=== PATIENT | female | born 1955 | race Caucasian/White ===

== ENCOUNTER 2019-12-12 11:08 | Outpatient (CLI) | payer MEDICARE, MEDICAID, SELFPAY ==
--- NOTE | ~2019-12-12 | US_ITS ---
EXAMINATION: US pelvic complete DATE: 12/12/2019 14:31 INDICATION: Vaginal spotting Comparison:No prior studies for comparison. TECHNIQUE: Multiple transabdominal sonographic images of the pelvis performed. Study limited due to p atient immobility. Transvaginal examination could not be tolerated. FINDINGS: The uterus measures 5.1 x 2.9 x 4 cm. The endometrial complex measures 2 mm. The ovaries are not visualized. There is no free fluid in the pelvis. There are no abnormal masses seen on either side. IMPRESSION: 1. Unremarkable pelvic ultrasound. Reviewed, dictated and finalized at location A.
== END 2019-12-12 11:09 | disposition home or self-care (01) ==
LOC: ANHIMG 11:25
PROVIDERS: PCP Family Medicine; Visit Provider Family Medicine
DX: N93.9 Abnormal uterine and vaginal bleeding, unspecified (principal)
CPT/HCPCS: 76856

== ENCOUNTER 2020-11-20 13:23 | Emergency (ER) | payer MEDICARE, SELFPAY ==
[2020-11-20] VITALS (29 sets, daily range): BP systolic 104–155; BP diastolic 69–88; PULSE 72–92; RESP 8–20; TEMP 36.7; O2SAT 95–100
--- NOTE | ~2020-11-20 | XR_ITS ---
XR knee LT min 4V DATE: 11/20/2020 14:48 INDICATION: Left knee pain TECHNIQUE: 4 views COMPARISON: 02/22/2018 left knee FINDINGS: There is diffuse osteopenia. Plate and screws are noted from the tibial plateaus through the mid tibial shaft, providing internal fixation for prior healed comminuted intra-articular fracture of the proximal tibia including tibial plateaus extending into the proximal tibial shaft. There is old healed fracture deformity of the fibular neck as well. No recent fracture or dislocation, periosteal reaction or bone destruction is evident. No joint effus ion is evident. There is moderate loss of height of medial compartment joint space. No radiopaque intra-articular loo se body or chondrocalcinosis. IMPRESSION: Old fracture deformities of the tibia and fibula Diffuse osteopenia No recent fracture or dislocation, joint effusion or bone destruction Reviewed, dictated and finalized at location B. ECT ACCOUNTANT
--- NOTE | ~2020-11-20 | XR_ITS ---
XR chest 1V portable DATE: 11/20/2020 14:48 INDICATION: Left rib pain TECHNIQUE: Portable AP chest on November 20, 2020 at 1430 hours COMPARISON: None FINDINGS: Prominent old fracture deformity of the left scapula. Apparent surgical resection of the la teral shaft of the left clavicle. There are old healed left rib fracture deformities. Diffuse osteopenia. Status post anterior lower cervical spine surgical fusion. Thoracolumbar scoliosis. Normal heart size. No hilar or mediastinal enlargement. There is mild discoid atelectasis or scarring in the left lower lobe in the retrocardiac area. Minima l discoid atelectasis or scarring in the right lower lung. The lungs otherwise appear clear. No pleural effusion or pulmonary vascular congestion or pneumothorax. IMPRESSION: Discoid atelectasis or scarring in the left lower lobe and right lower lung; otherwise no active cardiopulmonary disease Old fracture deformities of left scapula and ribs and probable resection of the lateral aspect of the left clavicle Diffuse osteopenia Status post anterior cervical spine fusion Thoracolumbar scoliosis Reviewed, dictated and finalized at location B. TY OR CITY AUDITOR IMPRESSION: Discoid atelectasis or scarring in the left lower lobe and right lo wer lung; otherwise no active cardiopulmonary disease Old fracture deformities of left scapula and ribs and probable resection of the lateral aspect of the left clavicle Diffuse osteopenia Status post anterior cervical spine fusion Thoracolumbar scoliosis
--- NOTE | ~2020-11-20 | US_ITS ---
EXAMINATION: US venous doppler [facility] EXAM DATE: 11/20/2020 15:06 INDICATION: Left leg pain and swelling. TECHNIQUE: Multiple grayscale, color flow and Doppler images of the left lower extremity deep venous system were obtained and reviewed. There is no prior study for comparison. FINDINGS: The left common femoral, femoral and profunda veins demonstrate normal color flow, respirat ory variation, augmentation and compressibility. Compressibility, color flow confirmed within the le ft popliteal, posterior tibial, peroneal, and greater saphenous veins. IMPRESSION: 1. No left lower extremity deep venous thrombosis. Reviewed, dictated and finalized at location A. B SPECIALIST
--- NOTE | ~2020-11-20 | CT_ITS ---
EXAMINATION: CT abdomen pelvis w con EXAM DATE: 11/20/2020 17:36 INDICATION: Left-sided abdominal pain. TECHNIQUE: Spiral CT of the abdomen and pelvis was performed following intravenous injection of 100 m L Omnipaque 350. Axial, coronal and sagittal images were reviewed. The dose-length product (DLP) fo r this examination was 606.54 mGy-cm. The exposure was tailored according to patient size (auto mA e xposure control), and iterative reconstruction (ASIR) was used as additional dose reduction technique . There is no prior study for comparison. FINDINGS: The liver, spleen, adrenal glands and pancreas are unremarkable. There are cholecystectomy clips. There is bilateral hydronephrosis, moderate on the right and mild to moderate on the left, do wn to the ureterovesicular junctions bilaterally. No obstructing stones. There is evidence of old kimber ateral renal cortical scarring. The uterus is unremarkable. The bladder is unremarkable. There is no retroperitoneal or pelvic lymphadenopathy. There is mild scattered arteriosclerotic disease. The appendix is normal. The stomach and small bowel are unremarkable. There is expected amount of c olonic stool. No free intraperitoneal gas. The heart is normal in size. There are no pericardial or pleural effusions. There are bibasilar linear opacities, subsegmental atelectasis. There are no osteoblastic or osteolytic lesions identified. There is moderate thoracolumbar levoscoliosis. Pain pump device, catheter. IMPRESSION: 1. Bilateral hydronephrosis to the UVJs without obstructing etiology identified. Regions of renal co rtical scarring. Chronic vesicoureteral reflux could explain both these findings. 2. Bibasilar subsegmental atelectasis. Reviewed, dictated and finalized at location A. AL ROUTER OPERATOR IMPRESSION: 1. Bilateral hydronephrosis to the UVJs without obstructing etiology identifie d. Regions of renal cortical scarring. Chronic vesicoureteral reflux could expl ain both these findings. 2. Bibasilar subsegmental atelectasis.
--- NOTE | ~2020-11-20 | XR_ITS ---
XR ankle LT min 3V DATE: 11/20/2020 14:48 INDICATION: Pain. No recent injury. TECHNIQUE: 4 views COMPARISON: 02/22/2018 left ankle FINDINGS: Plate and screws are noted along the proximal to mid tibial shaft. Diffuse osteopenia, particularly from the distal tibia and fibula distally. Chronic deformity at distal tibial diametaphyseal fracture and distal fibular shaft fracture. There is a notch-like defect along the distal medial tibial metaphysis which is corticated and less promine nt than on 02/22/2018. No interval periosteal reaction or bone destruction is noted. No recent fracture or dislocation is detected. IMPRESSION: Chronic fracture deformities of the distal tibia and fibula Osteopenia, particularly at the distal tibia and fibula, ankle and foot Reviewed, dictated and finalized at location B. OM FURRIER
[2020-11-20 13:51] LABS: Add Urine Microscopic? YES; Appearance Urine Cloudy (Clear); Bacteria Urine Trace /hpf; Bilirubin Urine Negative (Negative); Blood Urine 1+ (Negative); Color Urine Yellow (Yellow); Glucose Urine UA Negative (Negative); Ketones Urine Negative (Negative); Leukocyte Esterase Ur 2+ LEU/UL (Negative); Mucus Urine Rare /lpf; Nitrate Urine Negative (Negative); Protein Urine 1+ mg/dL (Negative); RBC Urine 21-50 /hpf (0-2); Specific Grav Ur 1.011 (1.001-1.035); Squamous Epithelial Cell Urine Rare /hpf (Few); WBC Clumps Urine Present /HPF; WBC Urine >75 /hpf
[2020-11-20 14:07] LABS: Basophils Percent Auto 0.1 % (0.2-1.2); Eosinophils Absolute Auto 0.2 K/mm3 (0-0.3); Eosinophils Percent Auto 1.8 % (0-4.4); Hemoglobin 11.8 g/dL (12.0-15.0); Immature Granulocyte Absolute 0.02 K/mm3 (0.00-0.031); Immature Granulocyte Percent A 0.2 % (0-0.5); Lymphocytes Absolute Auto 2.14 K/mm3 (0.9-3.2); Lymphocytes Percent Auto 24.6 % (18.3-44.2); Mean Corpuscular HGB Conc 32.8 g/dl (32-36); Mean Corpuscular Hemoglobin 28.9 pg (26-34); Mean Corpuscular Volume 88.2 fl (80-100); Mean Platelet Volume 9.6 fl (7.4-10.4); Monocytes Absolute Auto 0.5 K/mm3 (0.1-0.6); Monocytes Percent Auto 5.2 % (2.6-8.5); Neutrophils Absolute Auto 5.9 K/mm3 (1.3-6.7); Neutrophils Percent Auto 68.1 % (45.5-73.1); Platelet Count Result 267 k/mm3 (150-375); Red Blood Count 4.08 M/mm3 (4.2-5.4); Red Cell Distribution Width 13.9 % (11.5-14.5); White Blood Count 8.7 K/mm3 (4.5-10.0)
[2020-11-20 14:20] LABS: Alanine Aminotransferase 14 U/L (4-35); Albumin Level 3.8 g/dL (3.5-5.1); Alkaline Phosphatase 161 U/L (38-126); Anion Gap 5 mmol/L (8-16); Aspartate Amino Transferase 25 U/L (14-36); Bilirubin,Total 0.4 mg/dL (0.2-1.3); Blood Urea Nitrogen 21 mg/dL (7-17); Calcium 9.3 mg/dL (8.4-10.2); Carbon Dioxide 31 mmol/L (22-30); Chloride 101 mmol/L (98-107); Estimated CRCL calculation 46 ml/min; Estimated Glomerular Filt Rate 56; Glucose 94 mg/dL (65-105); Lipase 142 U/L (23-300); Potassium 4.4 mmol/L (3.4-5.0); Sodium 137 mmol/L (137-145)
--- NOTE | 2020-11-20 14:22 | ECG_ITS ---
Measurements Intervals [place] Rate: 83 P: 22 WA: 159 QRS: 30 QRSD: 75 T: 49 QT: 352 QTc: 414 Interpretive Statements SINUS RHYTHM BASELINE ARTIFACT- I, II, III, AVR, AVL, AVF NORMAL ECG Electronically Signed On 11-20-2020 17:15:06 NUTRITION EDUCATOR by Yossi Navarro D.O.
--- NOTE | 2020-11-20 14:27 | PC.NURSE ---
Called lab to add on d dimer and pt inr ptt
[2020-11-20 14:38] LABS: INR 1.1; Partial Thromboplastin Time 33.7 SECONDS (22.3-36.8); Prothrombin Time 14.4 Seconds (11.1-14.7)
[2020-11-20 14:41] LABS: D Dimer 0.27 ug/mL (<0.48)
--- NOTE | 2020-11-20 15:29 | ED.ABDPAIN ---
HPI - Abdominal Pain General Chief Complaint: Abdominal Pain <Lavonne Mena MD - Last Filed: 11/20/20 17:14> Stated Complaint: abd pain <Lavonne Mena MD - Last Filed: 11/20/20 17:14> Time Seen by Provider: 11/20/20 13:53 <Lavonne Mena MD - Last Filed: 11/20/20 17:14> Source: patient <Lavonne Mena MD - Last Filed: 11/20/20 17:14> Mode of arrival: EMS <Lavonne Mena MD - Last Filed: 11/20/20 17:14> Limitations: no limitations <Lavonne Mena MD - Last Filed: 11/20/20 17:14> History of Present Illness HPI narrative: This patient is a 65 year old female with history of chronic pain syndrome with pain pump who presents for evaluation of left upper abdominal pain starting today. She reports she noticed that she is tender when anyone touches her left lower ribs. She denies any recent fall or injury. She denies fever, chills, shortness of breath or cough. She also reports left lower leg pain. She has history of surgeries to her legs due to a traumatic injury over 10 years ago. She has a pain pump in place and it was last changed 3 years ago. She also takes oxycodone for pain. She reports her left lower leg feels swollen. <Lavonne Mena MD - Last Filed: 11/20/20 17:14> Related Data Allergies/Adverse Reactions: Allergies Allergy/AdvReac Type Severity Reaction Status Date / Time oxybutynin Allergy Unknown unknown Verified 02/22/18 14:46 <Lavonne Mena MD - Last Filed: 11/20/20 17:14> Review of Systems Review of Systems: All systems reviewed & are unremarkable except as noted in HPI and below <Lavonne Mena MD - Last Filed: 11/20/20 17:14> PMFSH Past Medical History Medical History: Medical History (Updated 11/20/20 @ 17:08 by Lavonne Mena MD) Anxiety disorder, unspecified CRPS (complex regional pain syndrome) Therapeutic opioid-induced constipation (OIC) <Lavonne Mena MD - Last Filed: 11/20/20 17:14> Social History Social History: Social History (Updated 11/20/20 @ 15:45 by Lavonne Mena MD) Smoking status: Never smoker Gender identity (if verbalized by the patient): Female <Lavonne Mena MD - Last Filed: 11/20/20 17:14> Exam Const: General: no acute distress and alert <Lavonne Mena MD - Last Filed: 11/20/20 17:14> Orientation/consciousness: patient oriented x3 <Lavonne Mena MD - Last Filed: 11/20/20 17:14> Eyes: EOM: EOMs intact bilaterally <Lavonne Mena MD - Last Filed: 11/20/20 17:14> Chest: Chest palpation & inspection: tenderness rib <Lavonne Mena MD - Last Filed: 11/20/20 17:14> Resp: Effort & Inspection: normal respiratory effort and no retractions <Lavonne Mena MD - Last Filed: 11/20/20 17:14> Auscultation: clear to auscultation bilaterally <Lavonne Mena MD - Last Filed: 11/20/20 17:14> Cardio: Rate: regular rate <Lavonne Mena MD - Last Filed: 11/20/20 17:14> Rhythm: regular rhythm <Lavonne Mena MD - Last Filed: 11/20/20 17:14> Heart sounds: no murmurs <Lavonne Mena MD - Last Filed: 11/20/20 17:14> GI: GI Palp: Yes Soft to palpation, Yes Tenderness to palpation present (GI) (LUQ, LLQ, left CVA) and No Guarding due to palpation present (GI) <Lavonne Mena MD - Last Filed: 11/20/20 17:14> Auscultation: normal bowel sounds <Lavonne Mena MD - Last Filed: 11/20/20 17:14> Skin: General skin exam: normal color <Lavonne Mena MD - Last Filed: 11/20/20 17:14> Rashes: no rashes <Lavonne Mena MD - Last Filed: 11/20/20 17:14> Neuro: General: patient oriented x3 <Lavonne Mnea MD - Last Filed: 11/20/20 17:14> Extrem: General: edema bilateral <Lavonne Mena MD - Last Filed: 11/20/20 17:14> Other: left lower leg tenderness, no erythema <Lavonne Mena MD - Last Filed: 11/20/20 17:14> Psych: Mental Status: mental status grossly normal <Lavonne Mena MD - Last Filed: 11/20/20 17:14> A
[2020-11-20] MEDS: HYDROmorphone HCL INJ (*CRX) 1 MG/ML SYR IV PUSH (18:49)
--- NOTE | 2020-11-20 19:28 | PC.NURSE ---
report to Christal at [facility].
--- NOTE | 2020-11-20 23:53 | PC.NURSE ---
Assumed care of PT. report from Yen RN
--- NOTE | 2020-11-21 00:37 | PC.NURSE ---
[facility] [id number]
--- NOTE | 2020-11-21 00:38 | PC.NURSE ---
new eta for transport is [id number]
[2020-11-21 01:50] VITALS: BP 127/88; PULSE 78; RESP 19; O2SAT 99
== END 2020-11-21 01:50 ==
PROVIDERS: Emergency Medicine; Emergency Provider General Practice
DX: R10.12 Left upper quadrant pain (principal); M79.662 Pain in left lower leg; G89.4 Chronic pain syndrome; N13.30 Unspecified hydronephrosis; R91.8 Other nonspecific abnormal finding of lung field; M85.862 Other specified disorders of bone density and structure, left lower leg
CPT/HCPCS: 36415; 51701; 71045; 73564; 73610; 74177; 80053; 81001; 83690; 85025; 85380; 85610; 85730; 87077; 87086; 87088; 87186; 93005; 93971; 96365; 96375; 99284; J0696; J1170; Q9967

== ENCOUNTER 2020-12-23 22:19 | Observation (INO) | payer MEDICARE, SELFPAY ==
--- NOTE | ~2020-12-23 | CT_ITS ---
EXAMINATION: CT abdomen pelvis w con DATE: 12/24/2020 01:18 INDICATION: Abdominal pain TECHNIQUE: Computed tomography (CT) of the abdomen and pelvis was performed with 100 cc Omnipaque 350 intravenous contrast. The dose-length product was 784.17 mGy-cm. Automated exposure control and iter ative reconstruction technique were employed. COMPARISON: CT dated 11/20/2020. FINDINGS: There is bilateral hydroureteronephrosis with urothelial enhancement. Bladder wall is thick ened and enhancing with mild perivesical infiltration of the fat. There is gas in the bladder lumen. Nonobstructive bowel gas pattern. Status post cholecystectomy with expected prominence of the bile du cts. There is focal fatty infiltration near the falciform ligament. The spleen, pancreas, adrenal gla nds are unremarkable. No abscess. No acute osseous abnormality. Colonic diverticulosis without eviden ce for diverticulitis. Moderate osteoarthritis of the hips. Levoscoliosis of the lumbar spine. Modera te lumbar spondylosis. There is a battery pack overlying the left abdominal wall. IMPRESSION: 1. Moderate bilateral hydroureteronephrosis with urothelial enhancement. Thickened enhancing bladder wall. Findings compatible with known cystitis with ascending urinary tract infection. Reviewed, dictated and finalized at location A. IMPRESSION: 1. Moderate bilateral hydroureteronephrosis with urothelial enhancement. Thicke bravo enhancing bladder wall. Findings compatible with known cystitis with ascend ing urinary tract infection.
--- NOTE | ~2020-12-23 | CT_ITS ---
EXAMINATION: CT BRAIN W/O DATE: 12/24/2020 01:14 INDICATION: Altered mental status TECHNIQUE: Computed tomography (CT) of the head was performed without intravenous contrast. The dose- length product was 605.33 mGy-cm. The mA was adjusted according to patient size. Iterative reconstruc tion technique was employed. COMPARISON: No prior studies for comparison. FINDINGS: Appropriate brain parenchymal volume for age. Normal alexander-white differentiation. No acute i ntracranial hemorrhage, infarction, mass or mass effect. No ventriculomegaly or midline shift. Midline sagittal images demonstrate a normal corpus callosum, c raniovertebral junction and sella turcica. Basilar cisterns are patent. Paranasal sinuses and mastoids are pneumatized. No depressed skull fractures. IMPRESSION: 1. No acute intracranial abnormality. Reviewed, dictated and finalized at location A.
--- NOTE | ~2020-12-23 | XR_ITS ---
XR chest 1V 12/24/2020 01:22 Indication: Mental status. Weakness. Dyspnea. Procedure: AP portable chest Comparison: 11/20/2020 Findings: Heart size normal. There is left basilar atelectasis. No focal pneumonia, edema or effusion . There is a chronic fracture deformity of the left clavicle/shoulder unchanged. No acute osseous abn ormality. Impression: 1: Left basilar atelectasis. Reviewed, dictated and finalized at location A. Impression: 1: Left basilar atelectasis.
[2020-12-23 22:22] VITALS: BP 140/63; PULSE 86; RESP 18; TEMP 36.9; O2SAT 99
[2020-12-23 22:45] VITALS: BP 134/61; PULSE 85; RESP 16; O2SAT 98
[2020-12-23 23:11] LABS: Add Urine Microscopic? YES; Appearance Urine Turbid (Clear); Bilirubin Urine 2+ (Negative); Blood Urine 2+ (Negative); Color Urine Yellow (Yellow); Glucose Urine UA Negative (Negative); Ketones Urine Negative (Negative); Leukocyte Esterase Ur 3+ LEU/UL (Negative); Nitrate Urine Negative (Negative); Protein Urine 3+ mg/dL (Negative); RBC Urine >75 /hpf (0-2); Specific Grav Ur 1.012 (1.001-1.035); WBC Clumps Urine Present /HPF; WBC Urine >75 /hpf
[2020-12-23] MEDS: SODIUM CHLORIDE 0.9% IV 1,000 ML 999 ML IV CONT (23:34)
[2020-12-24] VITALS (8 sets, daily range): BP systolic 110–153; BP diastolic 43–89; PULSE 82–97; RESP 16–18; TEMP 36.4–36.8; O2SAT 94–100; BMI 23.5; BMI 23.6
[2020-12-24 00:01] LABS: Basophils Percent Auto 0.2 % (0.2-1.2); Eosinophils Absolute Auto 0.2 K/mm3 (0-0.3); Eosinophils Percent Auto 1.3 % (0-4.4); Hematocrit 33.7 % (37.0-47.0); Hemoglobin 10.8 g/dL (12.0-15.0); Immature Granulocyte Absolute 0.19 K/mm3 (0.00-0.031); Immature Granulocyte Percent A 1.1 % (0-0.5); Lymphocytes Absolute Auto 2.25 K/mm3 (0.9-3.2); Lymphocytes Percent Auto 13.4 % (18.3-44.2); Mean Corpuscular Hemoglobin 28.3 pg (26-34); Mean Corpuscular Volume 88.2 fl (80-100); Mean Platelet Volume 9.1 fl (7.4-10.4); Monocytes Absolute Auto 1.2 K/mm3 (0.1-0.6); Monocytes Percent Auto 7.3 % (2.6-8.5); Neutrophils Absolute Auto 12.9 K/mm3 (1.3-6.7); Neutrophils Percent Auto 76.7 % (45.5-73.1); Platelet Count Result 346 k/mm3 (150-375); Red Blood Count 3.82 M/mm3 (4.2-5.4); Red Cell Distribution Width 14.5 % (11.5-14.5); White Blood Count 16.8 K/mm3 (4.5-10.0)
[2020-12-24 00:50] LABS: Estimated CRCL calculation 28 ml/min; Estimated Glomerular Filt Rate 33
--- NOTE | 2020-12-24 02:05 | ED.GENADULT ---
HPI - General Adult General Chief complaint: Urogenital-Female Stated complaint: uti/sepsis Time Seen by Provider: 12/23/20 22:28 Source: RN notes reviewed History of Present Illness HPI narrative: Patient presents emergency department from [facility] for altered mental status. Per staff the patient's been having hallucinations been more confused for the past day they have also noted the patient is had more cloudy urine with the patient having history of UTI. Patient currently is complaining of right flank pain that she states began yesterday pain described as sharp and stabbing does not radiate denies any fevers or chills chest pain shortness of breath or any other symptoms patient states she does have a pain pump as well Related Data Home Medications Medication Instructions Recorded Confirmed dantrolene 50 mg PO TID 12/23/20 etodolac 300 mg PO DAILY 12/23/20 gabapentin 800 mg PO DAILY 12/23/20 12/23/20 levothyroxine 175 mcg PO DAILY 12/23/20 milnacipran [Savella] 100 mg PO DAILY 12/23/20 12/23/20 mirabegron [Myrbetriq] 25 mg PO DAILY 12/23/20 12/23/20 naloxegol [Movantik] 25 mg PO DAILY 12/23/20 naloxone [Narcan] INTRANASAL 12/23/20 sertraline 200 mg PO DAILY 12/23/20 trazodone 50 mg PO DAILY 12/23/20 Allergies Allergy/AdvReac Type Severity Reaction Status Date / Time oxybutynin Allergy Unknown unknown Verified 02/22/18 14:46 Review of Systems Review of Systems: Narrative: Gen.: Denies fevers or chills Eyes: Denies eye pain or visual change ENT: Denies congestion Respiratory: Denies shortness of breath or cough CV: Denies chest pain or palpitations GI: Denies abdominal pain nausea, emesis or diarrhea reports dark cloudy urine Musculoskeletal: Denies back pain or muscle pain Neuro: Reports confusion and hallucinations Skin: Denies rash Except as documented, all other systems reviewed and negative PMFSH Past Medical History Medical History Anxiety disorder, unspecified CRPS (complex regional pain syndrome) Therapeutic opioid-induced constipation (OIC) Social History Social History (Reviewed 12/24/20 @ 02:24 by SOL Hart Smoking status: Never smoker Gender identity (if verbalized by the patient): Female Exam Narrative: Exam Narrative: APPEARANCE: No acute distress, nontoxic, resting in bed EYES: EOMI HEENT: Normocephalic, atraumatic, OMM RESPIRATORY: No respiratory distress Clear to auscultation bilaterally with no rhonchi wheezing or rales. CARDIOVASCULAR: Regular rate and rhythm without murmurs rubs or gallops. ABDOMINAL: Soft, nondistended, tender palpation right upper quadrant lower quadrant no translateral quadrant left lower quadrant no rebound or guarding MUSCULOSKELETAl: Moves all extremities. No clubbing, cyanosis or edema. NEURO: Awake and alert x 3. Following commands, speech normal, no focal deficits SKIN:: Warm, dry. No rashes lesions or abrasions PSYCHIATRIC: Normal affect/mood, Course Course Emergency Course: : Discussed with Dr. Aceves presentation work-up agrees with mission at this time. Reviewed patient's old cultures and the patient has had vancomycin resistant UTI in past only sensitive to ampicillin requested patient be started on ampicillin 1 g every 12 hours Discussed with patient and family results of workup and diagnosis. Discussed need for admission. Patient and family understand and agree to current treatment plan Vital Signs Vital signs: Vital Signs Temperature 98.5 F 12/23/20 22: Pulse Rate 86 12/23/20 22:22 Respiratory Rate 18 12/23/20 22:22 Blood Pressure 140/63 12/23/20 22:22 Pulse Oximetry 99 12/23/20 22:22 Temperature 98.5 F 12/23/20 22:22 Pulse Rate 86 12/23/20 22:22 Respiratory Rate 18 12/23/20 22:22 Blood Pressure 140/63 12/23/20 22:22 Pulse Oximetry 99 12/23/20 22:22 Medical Decision Making Vital Signs Vital Signs: Vital Signs Temperature 9
[2020-12-24 02:14] LABS: Alanine Aminotransferase 9 U/L (4-35); Albumin Level 2.9 g/dL (3.5-5.1); Alkaline Phosphatase 157 U/L (38-126); Anion Gap 6 mmol/L (8-16); Aspartate Amino Transferase 20 U/L (14-36); Bilirubin,Total 0.5 mg/dL (0.2-1.3); Blood Urea Nitrogen 29 mg/dL (7-17); Calcium 7.9 mg/dL (8.4-10.2); Carbon Dioxide 26 mmol/L (22-30); Chloride 105 mmol/L (98-107); Estimated CRCL calculation 34 ml/min; Estimated Glomerular Filt Rate 41; Glucose 99 mg/dL (65-105); Lipase 184 U/L (23-300); Potassium 3.5 mmol/L (3.4-5.0); Sodium 137 mmol/L (137-145)
[2020-12-24 02:23] LABS: INR 1.2; Partial Thromboplastin Time 37.1 SECONDS (22.3-36.8); Prothrombin Time 15.5 Seconds (11.1-14.7)
[2020-12-24] MEDS: SODIUM CHLORIDE 0.9% IV 1,000 ML 100 ML IV CONT (04:05)
[2020-12-24] MEDS: AMPICILLIN 1 GM/NS 50 ML 1 GM/50 ML BAG IVPB ×2 (04:07→11:55)
--- NOTE | 2020-12-24 04:44 | ADMGEN ---
This patient, Farrah Griffin, was admitted to 3 [facility] Surg Room 323-02. Patient/family oriented to hospital policies and general routines including ID bracelet, bed and alarms, visiting hours, pain management, procedures, bathroom and other care routines, personal items, smoking policy, room service/diet, and visiting hours. Information on how to activate the Rapid Response Team has been discussed. Patient/Family are encouraged to report perceived risks to care and to ask questions if they do not understand what they are told or what they should do.
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
[2020-12-24] MEDS: ENOXAPARIN 40 MG/0.4 ML SYRINGE SUB-Q (18:51)
[2020-12-24] MEDS: FAMOTIDINE 10 MG TABLET BY MOUTH (18:52)
[2020-12-24] MEDS: GABAPENTIN 400 MG CAPSULE 800 MG PO ×2 (18:52→20:32)
[2020-12-24] MEDS: busPIRone HCL 10 MG TABLET PO (18:54)
[2020-12-24] MEDS: DOCUSATE SODIUM 100 MG CAPSULE BY MOUTH (18:54)
[2020-12-24] MEDS: AMPICILLIN TRIHYDRATE 500 MG CAPSULE PO (23:42)
[2020-12-25] MEDS: AMPICILLIN TRIHYDRATE 500 MG CAPSULE PO ×3 (05:54→20:14)
[2020-12-25] MEDS: LEVOTHYROXINE SODIUM 100 MCG TABLET PO (05:55)
[2020-12-25] MEDS: LEVOTHYROXINE SODIUM 75 MCG TABLET PO (05:55)
[2020-12-25 06:00] VITALS: BP 152/76; PULSE 100; RESP 18; TEMP 36.4; O2SAT 98
--- NOTE | 2020-12-25 07:50 | PC.NURSE ---
Multiple attempts were made at placing a new IV, including one ultrasound guided (which she refused as the IV was started r/t her frustration with previous attempts). Previous shift stated that her current IV infiltrated and there was swelling above the site. She had been off of fluids through the shift though she appeared to be drinking water and urinating well. ANJU Nguyen was called and she asked what the pharmacist would recommend as an alternative to her IV ATB. On the pharmacist's recommendation, she was placed on oral azithromycin 100mg q8 hours.
[2020-12-25] MEDS: oxyCODONE/ACETAMINOPHEN (*CRX) 5-325 MG TABLET 1 TABLET PO (08:41)
[2020-12-25] MEDS: busPIRone HCL 10 MG TABLET PO ×3 (09:14→17:08)
[2020-12-25] MEDS: GABAPENTIN 400 MG CAPSULE 800 MG PO ×4 (09:14→20:14)
[2020-12-25] MEDS: FAMOTIDINE 10 MG TABLET BY MOUTH ×2 (09:14→17:08)
[2020-12-25] MEDS: SERTRALINE HCL 50 MG TABLET 200 MG PO (09:14)
[2020-12-25 09:18] LABS: Alanine Aminotransferase 8 U/L (4-35); Albumin Level 3.1 g/dL (3.5-5.1); Alkaline Phosphatase 167 U/L (38-126); Anion Gap 10 mmol/L (8-16); Aspartate Amino Transferase 18 U/L (14-36); Bilirubin,Total 0.4 mg/dL (0.2-1.3); Blood Urea Nitrogen 14 mg/dL (7-17); Calcium 8.4 mg/dL (8.4-10.2); Carbon Dioxide 18 mmol/L (22-30); Chloride 107 mmol/L (98-107); Estimated CRCL calculation 48 ml/min; Estimated Glomerular Filt Rate > 60; Glucose 102 mg/dL (65-105); Magnesium 1.7 mg/dL (1.6-2.3); Potassium 3.8 mmol/L (3.4-5.0); Sodium 135 mmol/L (137-145)
--- NOTE | 2020-12-25 11:01 | PC.NURSE ---
Patient refusing lovenox injection this am. Patient stated she does not need it because she will walk around when she gets home and will not get a blood clot. Explained to patient the importance of the lovenox and patient still refuses. SCD's were placed on patients legs with her stating I will only wear them for an hour.
--- NOTE | 2020-12-25 11:05 | PC.NURSE ---
Called and left message for daughter in an attempt to have home medications brought in. Patients home medications Xtampza and Savella are non formulary.
--- NOTE | 2020-12-25 11:33 | PC.NURSE ---
Daughter returned call about bringing in home medications. Daughter stated she attempted to call the group home and they told her they were unable to release them to her. Notified Rain RENE of this and she will be looking for a substitution.
--- NOTE | 2020-12-25 12:57 | PM.IMPN ---
Progress Note: A&P Assessment and Plan (1) Urinary tract infection: Code(s): N39.0 - Urinary tract infection, site not specified Status: Acute Assessment and Plan: Patient's symptoms, imaging, and UA suspicious for UTI -started on ampicillin IV due to history of vancomycin resistant Enterococcus but she lost IV access and is refusing further IV access -will continue oral ampicillin and adjust medications accordingly, the urine culture is still pending -hydronephrosis seen on CT likely due to UTI, no signs of stones -blood cultures have no growth to date -patient's CBC was clotted today and the patient refused another blood draw. Plan to just redrawn tomorrow morning with morning labs. (2) Hydronephrosis: Code(s): N13.30 - Unspecified hydronephrosis Status: Acute Assessment and Plan: Secondary to above -back to baseline and back pain is improving -continue antibiotics (3) Acute metabolic encephalopathy: Code(s): G93.41 - Metabolic encephalopathy Status: Acute Assessment and Plan: Likely due to UTI -patient on various muscle relaxers and pain medications due to complex regional pain syndrome although I do not think this is causing her confusion at this time -her neuro exam is slightly abnormal. She seems weak in her lower extremities although she has good sensation and pulses. She also has a questionable left-sided facial droop but no left-sided weakness. She is unable to have a brain MRI. I will follow her neuro status throughout her stay. I think stroke is less likely in the setting of UTI/hydronephrosis (4) CRPS (complex regional pain syndrome): Status: Acute Assessment and Plan: Chronic -patient is on multiple pain medications and muscle relaxers and I had the RN to verify these medications -she takes Xtampza which we do not have and we are unable to obtain the medication. After looking up the conversion and speak with the pharmacist, I am going to do sustained release oxycodone 10 mg b.i.d. as this is equivalent -She also has a pain pump -will monitor for signs of withdrawal/overuse. Narcan ordered (5) Anxiety disorder, unspecified: Code(s): F41.9 - Anxiety disorder, unspecified Status: Acute Assessment and Plan: Chronic -continue buspirone, sertraline and Xanax (6) Hypothyroidism: Code(s): E03.9 - Hypothyroidism, unspecified Status: Acute Assessment and Plan: Chronic -continue levothyroxine (7) Generalized weakness: Code(s): R53.1 - Weakness Status: Acute Assessment and Plan: Suspect due to deconditioning and UTI -will need SNF -patient was a moderate assist with therapy -I do not suspect any spinal infection or process causing her weakness as the back pain is getting better and the CT does not show any abnormalities -Monitor Time Spent With Patient Time with patient: 25 - 35 minutes Subjective Date/time seen: 12/25/20 12:57 Interval history: Pt is a 65-year-old female here for UTI with hydronephrosis. Patient was seen today and states that her back pain has improved. With that being said, her whole body is painful due to not getting her pain medications. She says she is urinating just fine. Her legs are very painful and she feels very weak. She is not having any problems with urinating or having bowel movements. She denies chest pain, shortness of breath, fevers, chills, nausea, vomiting or leg swelling. She states that she does not want an IV and she understands the risk of this. Review of Systems Review of Systems: All systems reviewed & are unremarkable except as noted in HPI and below Exam Narrative: Exam Narrative: General:Well developed well nourished patient in no acute distress HEENT: Normocephalic, atraumatic, PERRL, Sclerae anicteric, oral mucosa moist. Neck: Supple Resp: CTA Heart: RRR Abd: Soft, pain to palpation especially t
[2020-12-25 14:00] VITALS: BP 148/73; PULSE 102; RESP 20; TEMP 36.7; O2SAT 99
[2020-12-25] MEDS: ACETAMINOPHEN 325 MG TABLET 650 MG PO (17:08)
[2020-12-25 18:08] LABS: SARS-CoV-2 RNA PCR Negative
[2020-12-25] MEDS: oxyCODONE HCL (*CRX) 10 MG TAB SR 12HR PO (20:13)
[2020-12-25 22:00] VITALS: BP 125/69; PULSE 85; RESP 16; TEMP 36.2; O2SAT 98
[2020-12-26] MEDS: ALPRAZolam (*CRX) 0.25 MG TABLET PO (01:12)
[2020-12-26] MEDS: CYCLOBENZAPRINE HCL 10 MG TABLET BY MOUTH ×3 (01:12→21:25)
[2020-12-26] MEDS: AMPICILLIN TRIHYDRATE 500 MG CAPSULE PO ×3 (04:52→21:25)
[2020-12-26] MEDS: LEVOTHYROXINE SODIUM 75 MCG TABLET PO (04:52)
[2020-12-26] MEDS: LEVOTHYROXINE SODIUM 100 MCG TABLET PO (04:52)
[2020-12-26 05:57] VITALS: BP 138/66; PULSE 87; RESP 18; TEMP 36.2; O2SAT 99
[2020-12-26 06:41] LABS: Anion Gap 4 mmol/L (8-16); Blood Urea Nitrogen 14 mg/dL (7-17); Calcium 8.7 mg/dL (8.4-10.2); Carbon Dioxide 28 mmol/L (22-30); Chloride 108 mmol/L (98-107); Estimated CRCL calculation 44 ml/min; Estimated Glomerular Filt Rate 56; Glucose 100 mg/dL (65-105); Magnesium 1.6 mg/dL (1.6-2.3); Potassium 3.7 mmol/L (3.4-5.0); Sodium 140 mmol/L (137-145)
[2020-12-26 06:43] LABS: Basophils Percent Auto 0.2 % (0.2-1.2); Eosinophils Absolute Auto 0.2 K/mm3 (0-0.3); Eosinophils Percent Auto 1.7 % (0-4.4); Hematocrit 31.6 % (37.0-47.0); Hemoglobin 10.2 g/dL (12.0-15.0); Immature Granulocyte Absolute 0.12 K/mm3 (0.00-0.031); Lymphocytes Absolute Auto 1.67 K/mm3 (0.9-3.2); Lymphocytes Percent Auto 14.6 % (18.3-44.2); Mean Corpuscular HGB Conc 32.3 g/dl (32-36); Mean Corpuscular Hemoglobin 27.8 pg (26-34); Mean Corpuscular Volume 86.1 fl (80-100); Mean Platelet Volume 8.6 fl (7.4-10.4); Monocytes Absolute Auto 0.9 K/mm3 (0.1-0.6); Monocytes Percent Auto 7.8 % (2.6-8.5); Neutrophils Absolute Auto 8.6 K/mm3 (1.3-6.7); Neutrophils Percent Auto 74.7 % (45.5-73.1); Platelet Count Result 287 k/mm3 (150-375); Red Blood Count 3.67 M/mm3 (4.2-5.4); Red Cell Distribution Width 13.8 % (11.5-14.5); White Blood Count 11.5 K/mm3 (4.5-10.0)
[2020-12-26] MEDS: busPIRone HCL 10 MG TABLET PO ×3 (09:27→17:38)
[2020-12-26] MEDS: ENOXAPARIN 40 MG/0.4 ML SYRINGE SUB-Q (09:27)
[2020-12-26] MEDS: FAMOTIDINE 10 MG TABLET BY MOUTH ×2 (09:28→17:38)
[2020-12-26] MEDS: GABAPENTIN 400 MG CAPSULE 800 MG PO ×4 (09:28→21:25)
[2020-12-26] MEDS: MAGNESIUM OXIDE 400 MG TABLET PO (09:29)
[2020-12-26] MEDS: SERTRALINE HCL 50 MG TABLET 200 MG PO (09:29)
[2020-12-26] MEDS: oxyCODONE HCL (*CRX) 10 MG TAB SR 12HR PO ×2 (09:29→21:25)
[2020-12-26 14:00] VITALS: BP 131/59; PULSE 82; RESP 18; TEMP 36.7; O2SAT 97
--- NOTE | 2020-12-26 14:11 | PM.IMPN ---
Progress Note: A&P Assessment and Plan (1) Urinary tract infection: Code(s): N39.0 - Urinary tract infection, site not specified Status: Acute Assessment and Plan: Urine culture is growing E coli and Proteus mirabilis >100,000 each. She has history of VRE in the urine one month ago. Started on IV ampicillin due to history of VRE however she lost IV access and at this time is refusing further IV access. We will continue oral ampicillin for now since she is refusing IV. Need to await further sensitivity report given her history of multi drug-resistant UTI. Hydronephrosis seen on CT likely due to UTI, no signs of stones. Blood cultures have no growth to date (2) Hydronephrosis: Code(s): N13.30 - Unspecified hydronephrosis Status: Acute Assessment and Plan: Secondary to above. Back to baseline and back pain is improving. Continue antibiotics (3) Acute metabolic encephalopathy: Code(s): G93.41 - Metabolic encephalopathy Status: Acute Assessment and Plan: Suspect related to to UTI. Patient on various muscle relaxers and pain medications due to complex regional pain syndrome although I do not think this is causing her confusion at this time. Her neuro exam is slightly abnormal. She seems weak in her lower extremities although she has good sensation and pulses. She also has a questionable left-sided facial droop but no left-sided weakness. She is unable to have a brain MRI. I will follow her neuro status throughout her stay. I think stroke is less likely in the setting of UTI/hydronephrosis (4) CRPS (complex regional pain syndrome): Status: Acute Assessment and Plan: Chronic. Patient is on multiple pain medications and muscle relaxers. She takes Xtampza which we do not have and we are unable to obtain the medication. Continue sustained release oxycodone 10 mg b.i.d. as this is equivalent. She also has a pain pump. Will monitor for signs of withdrawal/overuse. Narcan ordered (5) Anxiety disorder, unspecified: Code(s): F41.9 - Anxiety disorder, unspecified Status: Acute Assessment and Plan: Chronic. Continue buspirone, sertraline and Xanax (6) Hypothyroidism: Code(s): E03.9 - Hypothyroidism, unspecified Status: Acute Assessment and Plan: Chronic. Continue levothyroxine (7) Generalized weakness: Code(s): R53.1 - Weakness Status: Acute Assessment and Plan: Suspect due to deconditioning and UTI. Will need SNF. She is a moderate assist with therapy. Subjective Date/time seen: 12/26/20 1315 Interval history: Ms. Griffin is a 65yo F admitted for UTI with hydronephrosis. She reports pain to her mid lower abdomen and bilateral flanks. She reports both legs are also hurting. She describes her whole body is painful at this time. She denies chest pain, shortness of breath, nausea or vomiting. She describes she does not want an IV and she understands this risk of this. Review of Systems Review of Systems: All systems reviewed & are unremarkable except as noted in HPI and below Exam Narrative: Exam Narrative: General:Well developed well nourished patient in no acute distress HEENT: Normocephalic, EOMI, oral mucosa moist. Neck: Supple Resp: Lungs clear to auscultation. Respirations even and nonlabored. Heart:Rate and rhythm regular. No murmur appreciated. Abd: Soft, pain to palpation of suprapubic region and left and right flanks. Pain pump in the left lower quadrant. Skin: Warm and dry Extremities: No swelling, erythema or pain to palpation. Pain to palpation to both Neuro: Alert and Oriented x 4 technically.
[2020-12-26] MEDS: DOCUSATE SODIUM 100 MG CAPSULE BY MOUTH (17:38)
[2020-12-26 21:55] VITALS: BP 171/86; PULSE 84; RESP 18; TEMP 36.7; O2SAT 98
[2020-12-27] MEDS: LEVOTHYROXINE SODIUM 100 MCG TABLET PO (05:23)
[2020-12-27] MEDS: AMPICILLIN TRIHYDRATE 500 MG CAPSULE PO (05:23)
[2020-12-27] MEDS: LEVOTHYROXINE SODIUM 75 MCG TABLET PO (05:23)
[2020-12-27 06:00] VITALS: BP 109/77; PULSE 93; RESP 18; TEMP 36.7; O2SAT 97
[2020-12-27 06:27] LABS: Basophils Percent Auto 0.3 % (0.2-1.2); Eosinophils Absolute Auto 0.2 K/mm3 (0-0.3); Eosinophils Percent Auto 1.6 % (0-4.4); Hematocrit 32.1 % (37.0-47.0); Hemoglobin 10.4 g/dL (12.0-15.0); Immature Granulocyte Absolute 0.11 K/mm3 (0.00-0.031); Immature Granulocyte Percent A 0.9 % (0-0.5); Lymphocytes Absolute Auto 2.01 K/mm3 (0.9-3.2); Lymphocytes Percent Auto 17.2 % (18.3-44.2); Mean Corpuscular HGB Conc 32.4 g/dl (32-36); Mean Corpuscular Hemoglobin 28.3 pg (26-34); Mean Corpuscular Volume 87.2 fl (80-100); Mean Platelet Volume 8.7 fl (7.4-10.4); Monocytes Percent Auto 8.3 % (2.6-8.5); Neutrophils Absolute Auto 8.4 K/mm3 (1.3-6.7); Neutrophils Percent Auto 71.7 % (45.5-73.1); Platelet Count Result 291 k/mm3 (150-375); Red Blood Count 3.68 M/mm3 (4.2-5.4); Red Cell Distribution Width 13.8 % (11.5-14.5); White Blood Count 11.7 K/mm3 (4.5-10.0)
[2020-12-27 07:04] LABS: Anion Gap 8 mmol/L (8-16); Blood Urea Nitrogen 15 mg/dL (7-17); Calcium 8.8 mg/dL (8.4-10.2); Carbon Dioxide 27 mmol/L (22-30); Chloride 104 mmol/L (98-107); Estimated CRCL calculation 44 ml/min; Estimated Glomerular Filt Rate 56; Glucose 100 mg/dL (65-105); Magnesium 1.6 mg/dL (1.6-2.3); Potassium 3.6 mmol/L (3.4-5.0); Sodium 139 mmol/L (137-145)
[2020-12-27] MEDS: busPIRone HCL 10 MG TABLET PO ×3 (08:43→17:06)
[2020-12-27] MEDS: MAGNESIUM OXIDE 400 MG TABLET PO (08:43)
[2020-12-27] MEDS: GABAPENTIN 400 MG CAPSULE 800 MG PO ×4 (08:43→20:07)
[2020-12-27] MEDS: FAMOTIDINE 10 MG TABLET BY MOUTH ×2 (08:43→17:06)
[2020-12-27] MEDS: oxyCODONE HCL (*CRX) 10 MG TAB SR 12HR PO ×2 (08:44→20:07)
[2020-12-27] MEDS: SERTRALINE HCL 50 MG TABLET 200 MG PO (08:44)
[2020-12-27] MEDS: AMOXICILLIN/CLAVULANATE K 875-125 MG TAB 1 TABLET PO ×2 (12:16→20:07)
[2020-12-27 14:00] VITALS: BP 126/63; PULSE 82; RESP 16; TEMP 36.7; O2SAT 97
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
--- NOTE | 2020-12-27 15:55 | PC.NURSE ---
Report called to Vero at [facility].
[2020-12-27] MEDS: DOCUSATE SODIUM 100 MG CAPSULE BY MOUTH (17:07)
[2020-12-27] MEDS: CYCLOBENZAPRINE HCL 10 MG TABLET BY MOUTH (20:07)
--- NOTE | 2020-12-27 21:20 | PC.NURSE ---
Spoke to Vero WOOD at [facility] ([phone]) to let her know the updated ETA for Ms. Griffin of 22:45 with [facility]. Will continue to update her as needed. -AEW RN
[2020-12-27 22:00] VITALS: BP 144/76; PULSE 93; RESP 18; TEMP 36.1; O2SAT 97
== END 2020-12-27 23:10 ==
LOC: ANHED 12-24 03:26 → ANH3MEDSUR 12-24 03:42
PROVIDERS: Physician Assistant; Admitting Provider Internal Medicine; Emergency Provider Emergency Medicine; Visit Provider Physician Assistant
DX: N39.0 Urinary tract infection, site not specified (principal); N13.30 Unspecified hydronephrosis; B96.20 Unspecified Escherichia coli [E. coli] as the cause of diseases classified elsewhere; B96.4 Proteus (mirabilis) (morganii) as the cause of diseases classified elsewhere; G93.41 Metabolic encephalopathy; R03.0 Elevated blood-pressure reading, without diagnosis of hypertension; F41.9 Anxiety disorder, unspecified; K59.03 Drug induced constipation; T40.2X5A Adverse effect of other opioids, initial encounter; Z96.89 Presence of other specified functional implants; G89.29 Other chronic pain; E03.9 Hypothyroidism, unspecified; R53.1 Weakness; Z79.891 Long term (current) use of opiate analgesic; Z20.822 Contact with and (suspected) exposure to COVID-19
CPT/HCPCS: 36415; 51701; 70450; 71045; 74177; 80048; 80053; 81001; 83605; 83690; 83735; 85025; 85610; 85730; 87040; 87077; 87086; 87088; 87186; 96361; 96365; 96366; 96367; 96372; 96375; 96376; 97161; 97165; 97530; 99285; A9270; C9803; G0378; J0131; J0290; J0696; J1650; J7030; Q9967; U0003; U0005

== ENCOUNTER 2022-08-27 13:27 | Outpatient (CLI) | payer MEDICARE, MEDICAID, SELFPAY ==
--- NOTE | ~2022-08-27 | CT_ITS ---
EXAMINATION: CT diagnostic chest wo con DATE: 08/27/2022 13:59 INDICATION: Recent rib fracture, left lower lobe abnormality noted on 12/24/2020 chest radiograph TECHNIQUE: Computed tomography (CT) of the chest was performed without intravenous contrast. Automate d exposure control and iterative reconstruction technique were employed. Exam dose: 129.75 mGy-cm to ricci exam DLP. COMPARISON: 12/24/2020 AP chest FINDINGS: Normal heart size. No pericardial or pleural effusion. The ascending aorta measures up to 3.6 cm diameter, the mid aortic arch 2.5 cm diameter, the descendi ng thoracic aorta 2.2 cm diameter. No hilar or mediastinal mass lesion or lymphadenopathy is detected. Status post cholecystectomy. No adrenal mass lesion is noted. There is minimal discoid atelectasis or scarring of the right lower lobe and a prominent discoid scar or discoid atelectasis in the left lower lobe. No pulmonary infiltrate or consolidation or pneumotho rax. Status post lower anterior cervical spine surgical fusion. Old healed fracture deformities of the left clavicle and scapula and multiple old healed left rib fra cture deformities involving at least the first ribs. No suspicious osteolytic or osteoblastic lesions are noted. Thoracic scoliosis. IMPRESSION: Old healed left clavicular, left scapular and left rib fractures Bilateral lower lobe discoid atelectasis or scarring, more prominent on the left Status post cholecystectomy Status post lower anterior cervical spine surgical fusion Reviewed, dictated and finalized at [facility]. Reviewed, dictated and finalized at [facility]. 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
== END 2022-08-27 13:28 | disposition home or self-care (01) ==
PROVIDERS: PCP Family Medicine; Visit Provider Family Medicine
DX: R91.8 Other nonspecific abnormal finding of lung field (principal); Z90.49 Acquired absence of other specified parts of digestive tract; Z98.1 Arthrodesis status; Z87.81 Personal history of (healed) traumatic fracture
CPT/HCPCS: 71250

== ENCOUNTER 2023-02-19 21:22 | Emergency (ER) | payer MEDICARE, MEDICAID, SELFPAY ==
--- NOTE | ~2023-02-19 | XR_ITS ---
Left ankle Technique: AP, oblique, and lateral views were obtained. Clinical History: Pain Findings: No acute fracture or dislocation is seen. There are old, healed fracture deformities of the distal tibial and fibular shafts. Proximal tibial compression plate and interlocking screws are part ially imaged. Generalized osteopenia noted. Probable fusion across the subtalar joint. Mild degenerat heidi change of the tibiotalar joint noted. Soft tissues are otherwise unremarkable. Impression: No acute fracture or dislocation identified. Old, healed fracture deformities of the fibula and tibia, as detailed above. Probable fusion across the subtalar joint. Generalized osteopenia. Mild degenerative change of the tibiotalar joint. Reviewed, dictated and finalized at [facility]. Impression: No acute fracture or dislocation identified. Old, healed fracture deformities of the fibula and tibia, as detailed above. Probable fusion across the subtalar joint. Generalized osteopenia. Mild degenerative change of the tibiotalar joint.
--- NOTE | ~2023-02-19 | XR_ITS ---
Right ankle Technique: AP and lateral views were obtained. Clinical History: Status post fall Findings: No acute fracture or dislocation is seen. Old, healed fracture deformity the proximal fibul ar shaft noted. Tibial intramedullary feng is present with old, healed fracture deformities at the pro ximal shaft and midshaft. Generalized osteopenia present. Ankle mortise and other visualized joint sp aces are preserved. Soft tissues are otherwise unremarkable. Impression: No acute abnormality. Old, healed fractures of the tibia and fibula, as detailed above, with tibial intramedullary feng pres ent. Generalized osteopenia. Reviewed, dictated and finalized at [facility]. Impression: No acute abnormality. Old, healed fractures of the tibia and fibula, as detailed above, with tibial i ntramedullary feng present. Generalized osteopenia.
--- NOTE | ~2023-02-19 | XR_ITS ---
Left Knee Technique: AP and lateral views were obtained. Clinical History: Pain Findings: No fracture or dislocation is seen. There is generalized osteopenia. Old, healed fracture d eformity the proximal tibial shaft present, with compression plate and interlocking screws noted. [place] nt spaces are preserved without degenerative or erosive change. Soft tissues are unremarkable. No juana nt effusion is seen. Impression: No acute abnormality. Generalized osteopenia. Healed fracture deformity of the proximal tibial shaft with ORIF hardware in place. Reviewed, dictated and finalized at [facility]. Impression: No acute abnormality. Generalized osteopenia. Healed fracture deformity of the proximal tibial shaft with ORIF hardware in pl titi.
--- NOTE | ~2023-02-19 | XR_ITS ---
Left Shoulder Technique: AP and scapular Y views were obtained. Clinical History: Pain Findings: No acute fracture or dislocation is seen. There are probable prior surgical resection of th e distal clavicle, and probably portions of the acromion. Possible old, healed fracture deformity of the scapula. There is mild degenerative changes AC joint. Soft tissues are unremarkable. Impression: No acute abnormality evident. Probable prior resection of the distal clavicle, and possibly portions of the acromion, with possible chronic fracture deformity of the scapula. Appearance is stable since prior chest radiograph dated . Correlate with any relevant clinical/surgical history. Mild degenerative change of the glenohumeral joint. Reviewed, dictated and finalized at location . Impression: No acute abnormality evident. Probable prior resection of the distal clavicle, and possibly portions of the a cromion, with possible chronic fracture deformity of the scapula. Appearance is stable since prior chest radiograph dated 12/24/2020. Correlate with any releva nt clinical/surgical history. Mild degenerative change of the glenohumeral joint.
--- NOTE | ~2023-02-19 | XR_ITS ---
Right Knee Technique: AP and lateral views were obtained. Clinical History: Pain Findings: No acute fracture or dislocation is seen. Chronic fracture deformities of the proximal fibu lar shaft and proximal tibial shaft are present. Tibial intramedullary feng is partially included in t he [id number]. Joint spaces are preserved without degenerative or erosive change. Soft tissues are unremarkable. No joint effusion is seen. Impression: No acute reality. Chronic fracture deformities of the proximal fibula and tibia, with tibial intramedullary feng present . Reviewed, dictated and finalized at location [facility]. Impression: No acute reality. Chronic fracture deformities of the proximal fibula and tibia, with tibial intr amedullary feng present.
--- NOTE | ~2023-02-19 | XR_ITS ---
Right Hand Technique: PA, oblique, and lateral views were obtained. Clinical History: Pain Findings: No acute fracture or dislocation is seen. Osseous alignment is anatomic. Joint spaces are p reserved. Soft tissues are unremarkable. Impression: Unremarkable right hand. Reviewed, dictated and finalized at location [facility]. Impression: Unremarkable right hand.
--- NOTE | ~2023-02-19 | XR_ITS ---
AP view of the pelvis and AP and lateral views of the bilateral hips Clinical history: Pain Findings: No acute fracture or dislocation is seen. Osseous alignment is anatomic. Bilateral hip and SI joint spaces are preserved. Soft tissues are unremarkable. Impression: No significant abnormality is seen. Reviewed, dictated and finalized at location . Impression: No significant abnormality is seen.
--- NOTE | ~2023-02-19 | XR_ITS ---
Right Shoulder Technique: AP internal and external rotation views were obtained. Clinical History: Pain Findings: No fracture or dislocation is seen. Osseous alignment is anatomic. There is mild degenerati ve changes AC joint. Glenohumeral joint is intact.. Soft tissues are unremarkable. Impression: No fracture or dislocation seen. Mild degenerative change of the AC joint. Reviewed, dictated and finalized at location . Impression: No fracture or dislocation seen. Mild degenerative change of the AC joint.
[2023-02-19 21:25] VITALS: BP 131/59; PULSE 74; RESP 16; TEMP 36.4; O2SAT 100
[2023-02-19 22:05] LABS: Basophils Percent Auto 0.1 % (0.2-1.2); Eosinophils Percent Auto 0.2 % (0-4.4); Hematocrit 34.8 % (37.0-47.0); Hemoglobin 10.4 g/dL (12.0-15.0); Immature Granulocyte Absolute 0.15 K/mm3 (0.00-0.031); Immature Granulocyte Percent A 0.9 % (0-0.5); Lymphocytes Absolute Auto 1.29 K/mm3 (0.9-3.2); Lymphocytes Percent Auto 7.6 % (18.3-44.2); Mean Corpuscular HGB Conc 29.9 g/dl (32-36); Mean Corpuscular Hemoglobin 28.3 pg (26-34); Mean Corpuscular Volume 94.8 fl (80-100); Mean Platelet Volume 9.8 fl (7.4-10.4); Monocytes Absolute Auto 0.8 K/mm3 (0.1-0.6); Monocytes Percent Auto 4.7 % (2.6-8.5); Neutrophils Absolute Auto 14.7 K/mm3 (1.3-6.7); Neutrophils Percent Auto 86.5 % (45.5-73.1); Platelet Count Result 439 k/mm3 (150-375); Red Blood Count 3.67 M/mm3 (4.2-5.4); Red Cell Distribution Width 16.5 % (11.5-14.5)
[2023-02-19 22:19] LABS: Hypochromasia 1+ (NORMAL); Platelet Estimate Increased (Adequate); Schistocytes None Seen (NORMAL)
--- NOTE | 2023-02-19 22:38 | PC.NURSE ---
Pt stood up from her wheelchair at [place] earlier this evening and fell. [facility] staff found her laying on the floor and her wheelchair was on top of her. She denies hitting her head. She has had multiple falls recently and there are bruises and abrasions in different stages of healing on her legs. New skin tear noted to left knee. Pt initially only c/o pain to her left side, but at this time she is c/o bilateral shoulder pain, bilateral knee pain. She also c/o left hip pain. Possible shortening of left leg noted. Pt has a history of a TBI and is a poor historian. She has chronic pain and is unable to state whether or not she received her oxycodone.
[2023-02-19 22:44] LABS: Alanine Aminotransferase 27 U/L (6-35); Albumin Level 3.4 g/dL (3.5-5.1); Alkaline Phosphatase 434 U/L (38-126); Anion Gap 12 mmol/L (8-16); Aspartate Amino Transferase 50 U/L (14-36); Bilirubin,Total 0.7 mg/dL (0.2-1.3); Blood Urea Nitrogen 27 mg/dL (7-17); Calcium 8.6 mg/dL (8.4-10.2); Carbon Dioxide 19 mmol/L (22-30); Chloride 106 mmol/L (98-107); Estimated CRCL calculation 41 ml/min; Estimated Glomerular Filt Rate 50; Glucose 99 mg/dL (65-110); Potassium 4.3 mmol/L (3.4-5.0); Sodium 137 mmol/L (137-145)
[2023-02-19] MEDS: MORPHINE SULFATE (*CRX) 4 MG/ML INJ IV PUSH (23:35)
[2023-02-19 23:36] VITALS: BP 140/46; PULSE 73; RESP 10
[2023-02-19 23:37] VITALS: BP 140/46; PULSE 74; RESP 14; O2SAT 99
[2023-02-19 23:56] LABS: Amorphous Sediment Urine Present; Appearance Urine Turbid (Clear); Bacteria Urine 4+ /hpf; Bilirubin Urine Negative (Negative); Blood Urine 2+ (Negative); Color Urine Yellow (Yellow); Glucose Urine UA Negative (Negative); Ketones Urine 1+ mg/dL (Negative); Leukocyte Esterase Ur 3+ LEU/UL (Negative); Need Manual Microscopic Reviewed; Nitrate Urine Negative (Negative); Protein Urine 2+ mg/dL (Negative); RBC Urine >100 /hpf (0-2); Squamous Epithelial Cell Urine Occasional /hpf (Few); WBC Urine >100 /hpf
[2023-02-19 23:58] LABS: Add Urine Microscopic? YES
[2023-02-20 00:01] VITALS: BP 115/45; PULSE 72; RESP 11; O2SAT 97
[2023-02-20 00:30] VITALS: BP 108/46; PULSE 67; RESP 8; O2SAT 100
[2023-02-20 02:18] VITALS: BP 115/58; PULSE 67; RESP 12; O2SAT 100
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
--- NOTE | 2023-02-20 02:39 | PC.NURSE ---
Nurse report called to Merced WOOD at [facility].
--- NOTE | 2023-02-20 03:00 | PC.NURSE ---
Nurse report given to Dayna WOOD
== END 2023-02-20 04:04 ==
PROVIDERS: Emergency Provider Emergency Medicine; PCP Family Medicine
DX: M25.552 Pain in left hip (principal); M25.551 Pain in right hip; M25.512 Pain in left shoulder; M25.511 Pain in right shoulder; M25.562 Pain in left knee; M25.561 Pain in right knee; N39.0 Urinary tract infection, site not specified; G89.21 Chronic pain due to trauma; E03.9 Hypothyroidism, unspecified; K21.9 Gastro-esophageal reflux disease without esophagitis; F41.9 Anxiety disorder, unspecified; W05.0XXA Fall from non-moving wheelchair, initial encounter; M85.872 Other specified disorders of bone density and structure, left ankle and foot; M85.871 Other specified disorders of bone density and structure, right ankle and foot; M85.88 Other specified disorders of bone density and structure, other site
CPT/HCPCS: 36415; 73030; 73130; 73521; 73560; 73600; 80053; 81001; 85025; 87086; 87088; 96374; 99284; J2270

== ENCOUNTER 2023-03-12 09:41 | Outpatient (CLI) | payer MEDICARE, MEDICAID, SELFPAY ==
--- NOTE | ~2023-03-12 | MR_ITS ---
MRI of the brain Clinical History: CVA Technique: Axial and sagittal T1-weighted images were acquired. These were followed by axial T2-weigh mattie, diffusion weighted, gradient, and FLAIR images. Findings: There is no acute infarct, intracranial hemorrhage, or mass lesion. There are minimal chron ic white matter changes in the periventricular white matter bilaterally. Ventricles and subarachnoid spaces are mildly dilated. Orbits are unremarkable. Paranasal sinuses and mastoid air cells are clear. Major intracranial flow voids are intact. Sagittal midline structures are intact. IMPRESSION: No acute infarct, intracranial hemorrhage, or mass lesion. Minimal chronic microvascular ischemic changes in the periventricular white matter. Reviewed, dictated and finalized at location . IMPRESSION: No acute infarct, intracranial hemorrhage, or mass lesion. Minimal chronic microvascular ischemic changes in the periventricular white mat ter.
== END 2023-03-12 09:42 | disposition home or self-care (01) ==
PROVIDERS: PCP Family Medicine; Visit Provider Family Medicine
DX: I63.9 Cerebral infarction, unspecified (principal); G90.3 Multi-system degeneration of the autonomic nervous system
CPT/HCPCS: 70551

== ENCOUNTER 2023-03-13 12:42 | Inpatient (IN) | payer MEDICARE, MEDICAID, SELFPAY ==
[2023-03-13] VITALS (11 sets, daily range): BP systolic 98–148; BP diastolic 62–86; PULSE 92–96; RESP 14–20; TEMP 36.3–36.4; O2SAT 94–98; BMI 17.9
--- NOTE | ~2023-03-13 | XR_ITS ---
XR chest PICC line 03/15/2023 10:42 Indication: PICC line placement Procedure: AP portable chest Comparison: Comparison to multiple prior studies sequentially, with oldest reviewed study dated 11/20. Findings: Heart size is normal. PICC line tip in the SVC. Mild interstitial edema. No pleural effusio n or pneumothorax. There are chronic fracture deformities of the left clavicle and scapula. Impression: 1: Mild interstitial edema. Reviewed, dictated and finalized at location A. Impression: 1: Mild interstitial edema.
--- NOTE | ~2023-03-13 | CT_ITS ---
EXAMINATION: CT abdomen pelvis w con INDICATION: Epigastric abdominal pain TECHNIQUE: Computed tomographic images of the abdomen and pelvis were obtained after the administrati on of 100 cc of Omnipaque 350 intravenous contrast. The dose-length product (DLP) was 296.77 mGy-cm. Automated exposure control and iterative reconstruction technique were employed. COMPARISON: 12/24/2020 FINDINGS: There are patchy airspace opacities of the lung bases. The heart size is normal. There is a n approximately 11.6 x 9.2 x 15.7 cm heterogeneous mass of the right hepatic lobe and medial left hep atic lobe with multiple tiny internal cystic spaces. The mass insinuates itself around, rather than o bstruction the hepatic and portal veins. The spleen, pancreas, and adrenal glands are normal. The gal lbladder is surgically absent. There is mild atrophy of the kidneys. Urothelial enhancement is noted in the ureters. There is wall thickening and urothelial enhancement of the urinary bladder. There is mild diffuse wall thickening of the colon which is incompletely distended. No pathologically enlarged abdominal or pelvic lymph nodes are identified. No free intraperitoneal gas or evidence of bowel obs truction. IMPRESSION: 1. Large heterogeneous mass, predominantly of the right hepatic lobe, probable hepatic abscess. Malig barbra, such as cholangiocarcinoma, is a consideration but felt to be less likely. 2. Findings consistent with urinary tract infection. 3. Airspace opacities of the lung bases, atelectasis versus pneumonia. 4. Possible mild wall thickening of the colon, incomplete distention versus mild colitis. These findings were discussed with Dr. Roberto Medina in the Emergency Department at 1800 hours on 03/13/2023. Reviewed, dictated and finalized at location F. IMPRESSION: 1. Large heterogeneous mass, predominantly of the right hepatic lobe, probable hepatic abscess. Malignancy, such as cholangiocarcinoma, is a consideration but felt to be less likely. 2. Findings consistent with urinary tract infection. 3. Airspace opacities of the lung bases, atelectasis versus pneumonia. 4. Possible mild wall thickening of the colon, incomplete distention versus mil d colitis. These findings were discussed with Dr. Roberto Medina in the Emergency Depar tment at 1800 hours on 03/13/2023.
--- NOTE | 2023-03-13 12:57 | ECG_ITS ---
Measurements Intervals [place] Rate: 92 P: 27 ID: [id number] QRS: 26 QRSD: 69 T: 55 QT: 336 QTc: 417 Interpretive Statements SINUS RHYTHM COMPARED TO ECG 11/20/2020 15:41:11 NO SIGNIFICANT CHANGES Electronically Signed On 03-14-2023 8:44:09 CDT by Adela Loaiza M.D.
[2023-03-13 13:12] LABS: Basophils Percent Auto 0.1 % (0.2-1.2); Eosinophils Percent Auto 0.1 % (0-4.4); Hematocrit 26.4 % (37.0-47.0); Hemoglobin 7.9 g/dL (12.0-15.0); Immature Granulocyte Absolute 0.41 K/mm3 (0.00-0.031); Immature Granulocyte Percent A 1.8 % (0-0.5); Lymphocytes Percent Auto 6.6 % (18.3-44.2); Mean Corpuscular HGB Conc 29.9 g/dl (32-36); Mean Corpuscular Hemoglobin 27.5 pg (26-34); Mean Platelet Volume 9.6 fl (7.4-10.4); Monocytes Absolute Auto 1.5 K/mm3 (0.1-0.6); Monocytes Percent Auto 6.5 % (2.6-8.5); Neutrophils Absolute Auto 19.1 K/mm3 (1.3-6.7); Neutrophils Percent Auto 84.9 % (45.5-73.1); Platelet Count Result 306 k/mm3 (150-375); Red Blood Count 2.87 M/mm3 (4.2-5.4); Red Cell Distribution Width 18.6 % (11.5-14.5); White Blood Count 22.6 K/mm3 (4.5-10.0)
--- NOTE | 2023-03-13 13:18 | PC.NURSE ---
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 Jose Luis informed report writer that patient that patient has been steadily declining since her fall on 02/19/23. Reported patient had an MRI yesterday and it was normal. Jose Luis reported patient was febrile at the facility with a temp fo 101.8 and patient used to be a one assist and is now a lucina lift. Jose Luis provided report writer with phone number for [facility] Perdomodirector of program management nurse. Leanne reported that patient's pain pump was not changed, she reported the pain pump was off for the MRI then restarted automatically 15 minutes after the MRI was completed. She reported she went to the facility and scanned the pump to confirm it was working but did not make any changes to her doses. Leanne reported patient get Morphine 549mcg daily and Bupivacaine.
[2023-03-13 13:22] LABS: INR 1.3; Prothrombin Time 16.9 Seconds (11.1-14.7)
[2023-03-13 13:23] LABS: Partial Thromboplastin Time 39.3 SECONDS (22.3-36.8)
[2023-03-13 13:24] LABS: Alanine Aminotransferase 47 U/L (6-35); Alkaline Phosphatase 594 U/L (38-126); Anion Gap 6 mmol/L (8-16); Aspartate Amino Transferase 393 U/L (14-36); Bilirubin,Total 0.7 mg/dL (0.2-1.3); Blood Urea Nitrogen 18 mg/dL (7-17); Calcium 8.3 mg/dL (8.4-10.2); Carbon Dioxide 25 mmol/L (22-30); Chloride 105 mmol/L (98-107); Estimated Glomerular Filt Rate > 60; Glucose 90 mg/dL (65-110); Potassium 4.3 mmol/L (3.4-5.0); Sodium 136 mmol/L (137-145)
[2023-03-13 13:42] LABS: Schistocytes None Seen (NORMAL)
[2023-03-13 13:43] LABS: Anisocytosis 1+ (NORMAL); Platelet Estimate Adequate (Adequate)
[2023-03-13 14:06] LABS: Influenza A QL RT-PCR Negative (Negative); Influenza B QL RT-PCR Negative (Negative); SARS-CoV-2 RNA PCR Negative (Negative)
[2023-03-13 16:48] LABS: Ammonia 14 umol/L (9-30)
[2023-03-13 17:28] LABS: Appearance Urine Turbid (Clear); Bacteria Urine 4+ /hpf; Bilirubin Urine Negative (Negative); Blood Urine 1+ (Negative); Color Urine Dark Yellow (Yellow); Glucose Urine UA Negative (Negative); Ketones Urine 1+ mg/dL (Negative); Leukocyte Esterase Ur 3+ LEU/UL (Negative); Need Manual Microscopic Reviewed; Nitrate Urine Negative (Negative); Non Pathogenic Casts >20; Protein Urine 3+ mg/dL (Negative); RBC Urine >100 /hpf (0-2); Specific Grav Ur 1.033 (1.001-1.035); Squamous Epithelial Cell Urine Moderate /hpf (Few); Urobilinogen Urine 0.2 mg/dL (<2.0); WBC Urine >100 /hpf; pH Urine 7.5 (5.0-9.0)
[2023-03-13 17:29] LABS: Add Urine Microscopic? YES
--- NOTE | 2023-03-13 17:29 | ED.AMS ---
HPI - Altered Mental Status General Chief Complaint: Altered Mental Status Stated Complaint: AMS Time Seen by Provider: 03/13/23 13:14 History of Present Illness HPI narrative: Patient is a 67-year-old female who presents ER with increased [facility]argy [facility]. Patient typically with some alteration in mental status but has become more weak and has had a fall. She has had an outpatient CT scan and MRI of her brain without any significant finding. Patient also had a urinalysis sent off but results are not yet returned. Patient is technically alert and oriented x3 at this time but is unable to provide any additional clinical history. She does seem to have some epigastric discomfort on exam. She is chronically ill-appearing and dry appearing Related Data Home Medications Medication Instructions Recorded Confirmed etodolac 300 mg capsule 300 mg PO Q8H PRN Pain 12/23/20 12/24/20 gabapentin 800 mg tablet 800 mg PO QID 12/23/20 12/24/20 levothyroxine 175 mcg tablet 175 mcg PO DAILY 12/23/20 12/24/20 milnacipran 100 mg tablet (Savella) 100 mg PO BID 12/23/20 12/24/20 mirabegron 25 mg tablet,extended 25 mg PO HS 12/23/20 12/24/20 release 24 hr (Myrbetriq) naloxegol 25 mg tablet (Movantik) 25 mg PO DAILY PRN Constipation 12/23/20 12/24/20 naloxone 4 mg/actuation nasal 4 mg intranasal PRN PRN Opiate 12/23/20 12/24/20 spray (Narcan) Reversal sertraline 100 mg tablet 200 mg PO DAILY 12/23/20 12/24/20 trazodone 50 mg tablet 50 mg PO HS PRN confusion 12/23/20 12/24/20 Fleet Enema 1 applic RECTAL PRN PRN 12/24/20 12/24/20 Constipation I-Nelson 1 tablet BYMOUTH DAILY 12/24/20 12/24/20 Milk of Magnesia 30 ml BYMOUTH PRN PRN Constipation 12/24/20 12/24/20 bisacodyl 10 mg RECTAL PRN 12/24/20 12/24/20 buspirone 10 mg tablet 10 mg PO TID 12/24/20 12/24/20 cyclobenzaprine 10 mg BYMOUTH TID PRN Muscle Spasm 12/24/20 12/24/20 docusate sodium 100 mg BYMOUTH QPM 12/24/20 12/24/20 docusate sodium 200 mg BYMOUTH QAM 12/24/20 12/24/20 ergocalciferol (vitamin D2) 50,000 units BYMOUTH WEEKLY 12/24/20 12/24/20 famotidine 10 mg BYMOUTH BID 12/24/20 12/24/20 magnesium citrate 1.745 g BYMOUTH PRN PRN 12/24/20 12/24/20 Constipation Allergies Allergy/AdvReac Type Severity Reaction Status Date / Time duloxetine Allergy Unknown Verified 03/13/23 13:00 oxybutynin Allergy Unknown Verified 03/13/23 13:00 Review of Systems Review of Systems: ROS unobtainable: Yes unobtainable due to medical condition PMFSH Past Medical History Medical History Anxiety disorder, unspecified CRPS (complex regional pain syndrome) GERD (gastroesophageal reflux disease) Hypothyroidism Therapeutic opioid-induced constipation (OIC) Family History Family History Mother Diabetes mellitus Social History Social History Social History: Since being in the [facility] the patient states she no longer smokes or drinks. If she cannot make decisions for herself she wants her daughter only should make the decisions. She would like to be a full code. PCP Dr. Suyapa George Smoking status: Never smoker Alcohol intake: former Substance use: former Substance use type: former substance user Gender identity (if verbalized by the patient): Female Spiritual care concerns: No Exam Narrative: GENERAL: Chronically ill-appearing, well-nourished, and in no acute distress. HEAD: Normocephalic, atraumatic. EYES: PERRL and EOMI. ENT: Dry mucous membranes. CHEST: Clear to auscultation. No respiratory distress. HEART: Regular rate and rhythm. Normal peripheral pulses. ABDOMEN: Soft, mild epigastric pain, nondistended, normal active bowel sounds. EXTREMITIES: Normal range of motion. No edema. SKIN: Warm, dry, no rash. NEURO: Alert and oriented x3. PSYCH: Normal mood and affect. Cour
--- NOTE | 2023-03-13 20:19 | PM.IMHP ---
H&P: HPI History of Present Illness Date/Time: 03/13/23 20:19 Chief Complaint: Fever Narrative: 67-year-old female with a past medical history traumatic brain injury, chronic pain syndrome anxiety and hypothyroidism who presented to the ER via EMS from [facility] due to fever and altered mental status. The patient has history of traumatic brain injury and does have some alteration in mental status at baseline with her baseline reportedly being alert orient x2 But has become more lethargic and weak and had a fall at the senior living. She had outpatient CT scan of the head and MRI of the brain in February without significant findings. She had a UA that was abnormal sent off but results were pending. Initially in the ER the patient was reportedly alert orient x3 but was unable to provide any additional clinical history. At the time my evaluation the patient knew that she was at the hospital but did not know what hospital she was at. She was oriented to her 1st name but actually had to correct herself on how to pronounce her last name. She eventually was able to tell me her date of on repeat prompting and was aware of what her current age. She complained of severe pain even with light brushing of her skin on her left arm bilateral lower extremities and abdomen. The patient was resistant to cares due to her discomfort. There is a question of whether not the patient's pain pump was recently adjusted. The patient was noted to have a fever up to 101.8 at the senior living. Temperature for EMS was 97.3. The patient has been afebrile since presentation to the ER. Source of information is from senior living records, ER records and limited past medical records. Some of the patient's diagnosis such as urge urinary incontinence his presumed given the patient is on Myrbetriq. Review of Systems Review of Systems: ROS unobtainable: Yes unobtainable due to mental status PMFSH Past Medical History Medical History (Updated 03/14/23 @ 01:11 by Cristin Aceves DO) Anxiety and depression Anxiety disorder, unspecified CRPS (complex regional pain syndrome) GERD (gastroesophageal reflux disease) Hypothyroidism Therapeutic opioid-induced constipation (OIC) Urge urinary incontinence Vitamin D deficiency Surgical History Surgical History (Updated 03/14/23 @ 01:02 by Cristin Aceves DO) History of abdominal surgery Midline abdominal scar extending from the xiphoid to the pubis. Exact procedure performed is unknown. Implantable intrathecal infusion pump present Status post open reduction with internal fixation of fracture Left ankle/tibia fracture Family History Family History Mother Diabetes mellitus Social History Social History Social History: Since being in the senior living the patient states she no longer smokes or drinks. If she cannot make decisions for herself she wants her daughter only should make the decisions. Code status: Full code Surrogate decision maker: Daughter Smoking packs per day: 1 Smoking cigarettes per day: 20.0 Smoking status: Former smoker Tobacco type: cigarettes Second hand tobacco smoke exposure: No Alcohol intake: former Substance use: never Substance use type: does not use Lack of Transportation: No Lack of Food: Never True Current Housing: I Have Housing Concerned About Future Housing: Decline to Answer Difficulty Paying Gas/Electric Bills: Decline to Answer Difficulty Paying for Meds: Decline to Answer Currently Unemployed: Decline to Answer Education: High School Diploma/GED Difficulty w/ Childcare or Family Care: Decline to Answer Living arrangements: senior living Gender identity (if verbalized by the patient): Female Spiritual care concerns: No Meds Home Medications and Allergies Home Medications Medication Instru
[2023-03-13] MEDS: PIPERACILLN/TAZ 3.375GM/NS50ML 3.375 GM/50 ML BAG IVPB (20:24)
[2023-03-13] MEDS: VANCOMYCIN 1,250 MG/NS 250 ML 1,250 MG/250 ML BAG 166.67 MG IVPB (21:05)
[2023-03-13] MEDS: SODIUM CHLORIDE 0.9% IV 2,000 ML 999 ML IV CONT (21:08)
--- NOTE | 2023-03-13 23:52 | ADMGEN ---
This patient, Farrah Griffin, was admitted to IMU Room 204-01 on 03/13/23 at 2330. Patient/family oriented to hospital policies and general routines including ID bracelet, bed and alarms, visiting hours, pain management, procedures, bathroom and other care routines, personal items, smoking policy, room service/diet, and visiting hours. Information on how to activate the Rapid Response Team has been discussed. Patient/Family are encouraged to report perceived risks to care and to ask questions if they do not understand what they are told or what they should do.
[2023-03-14] VITALS (15 sets, daily range): BP systolic 90–143; BP diastolic 45–75; PULSE 81–94; RESP 16–22; TEMP 36.4–36.6; O2SAT 94–100
[2023-03-14] MEDS: PIPERACILLN/TAZ 3.375GM/NS50ML 3.375 GM/50 ML BAG IVPB ×4 (02:38→20:51)
[2023-03-14] MEDS: SODIUM CHLORIDE 0.9% IV 1,000 ML 125 ML IV CONT ×3 (02:38→21:16)
[2023-03-14 05:05] LABS: Hematocrit 25.4 % (37.0-47.0); Hemoglobin 7.4 g/dL (12.0-15.0); Immature Reticulocyte Fraction 27.2 % (3.0-15.9); Mean Corpuscular HGB Conc 29.1 g/dl (32-36); Mean Corpuscular Hemoglobin 27.8 pg (26-34); Mean Corpuscular Volume 95.5 fl (80-100); Mean Platelet Volume 9.9 fl (7.4-10.4); Platelet Count Result 263 k/mm3 (150-375); Red Blood Count 2.66 M/mm3 (4.2-5.4); Red Cell Distribution Width 18.7 % (11.5-14.5); Reticulocyte Hemoglobin Conten 26.1 pg (28.2-35.7); Reticulocyte Percent 3.69 % (0.7-4.3)
[2023-03-14 05:19] LABS: Alanine Aminotransferase 36 U/L (6-35); Albumin Level 2.9 g/dL (3.5-5.1); Alkaline Phosphatase 543 U/L (38-126); Anion Gap 9 mmol/L (8-16); Aspartate Amino Transferase 185 U/L (14-36); Bilirubin,Total 0.7 mg/dL (0.2-1.3); Blood Urea Nitrogen 13 mg/dL (7-17); Calcium 7.6 mg/dL (8.4-10.2); Carbon Dioxide 20 mmol/L (22-30); Chloride 107 mmol/L (98-107); Estimated CRCL calculation 45 ml/min; Estimated Glomerular Filt Rate > 60; Glucose 105 mg/dL (65-110); Potassium 3.7 mmol/L (3.4-5.0); Sodium 136 mmol/L (137-145)
[2023-03-14 05:34] LABS: Transferrin < 80 mg/dL (206-381)
[2023-03-14 05:36] LABS: Band Neutrophils Percent 18 % (0-6); Lymphocytes Absolute Manual 1.54 K/mm3 (1.1-4.5); Monocytes Absolute Manual 0.44 K/mm3 (0.1-0.90); Monocytes Percent Manual 2 % (3-9); Neutrophils Absolute Manual 20.02 K/mm3 (1.7-7.2); Neutrophils Percent Manual 73 % (46-73); Platelet Estimate Adequate (Adequate); Total Cells Counted 100
[2023-03-14 05:37] LABS: Anisocytosis 2+ (NORMAL); Hypersegmented Neutrophils Present; Hypochromasia 1+ (NORMAL); Microcytosis 1+ (NORMAL); Schistocytes Rare (NORMAL); Spherocytes 1+ (NORMAL); Target Cells 1+ (NORMAL)
[2023-03-14 05:38] LABS: Poikilocytosis 1+ (NORMAL)
[2023-03-14 05:56] LABS: Iron 24 ug/dL (37-170)
[2023-03-14 06:06] LABS: Percent Iron Saturation 14 % (20-50)
[2023-03-14 06:28] LABS: Thyroid Stimulating Hormone Reflex 0.258 uIU/mL (0.465-4.68)
[2023-03-14] MEDS: LEVOTHYROXINE SODIUM 150 MCG TABLET PO (06:49)
[2023-03-14 07:52] LABS: Free T4 Free Thyroxine Reflex 1.42 ng/dL (0.78-2.19)
[2023-03-14 09:16] LABS: Total Triiodothyronine (T3) 0.55 NG/ML (0.97-1.69)
--- NOTE | 2023-03-14 10:25 | PM.IMPN ---
Progress Note: A&P Assessment and Plan (1) Abscess of liver: Code(s): K75.0 - Abscess of liver Status: Acute Assessment and Plan: Right lobe Continue Zosyn and vancomycin day 1 Surgical consultation pending (2) Acute UTI: Code(s): N39.0 - Urinary tract infection, site not specified Status: Acute Assessment and Plan: Continue Zosyn and vancomycin Culture pending (3) Acute on chronic anemia: Code(s): D64.9 - Anemia, unspecified Status: Acute Assessment and Plan: Iron panel consistent with anemia of chronic disease Ferritin is elevated likely due to be in acute phase reactant No sign of bleeding F/u h/h (4) Toxic metabolic encephalopathy: Code(s): G92.8 - Other toxic encephalopathy Status: Acute Assessment and Plan: Reduce or hold psychoactive drugs Monitor with treatment of underlying infection Subjective Date/time seen: 03/14/23 10:25 Interval history: Follow-up for possible right lobe liver abscess seen on CT of the abdomen pelvis. Complains of generalized aching and pain unable to characterize further. Complains of diarrhea. No abdominal cramps. Denied focal pain otherwise. Denied shortness of breath. Denied dysuria. Denied bleeding. Generalized but no focal weakness. Review of Systems Review of Systems: All systems reviewed & are unremarkable except as noted in HPI and below Exam Narrative: HEENT: PERRL, sclerae nonicteric, pharyngeal mucosa pink and intact NECK: No JVD CHEST: Clear to auscultation. Normal effort. HEART: NL S1/S2, regular, no murmur ABDOMEN: BS+, soft, generalized abdominal tenderness without palpable mass. Some guarding. No rebound. EXTREMITIES: No cyanosis, edema, or clubbing NEUROLOGIC: CN intact and symmetric to inspection. MUSCULOSKELETAL: Tone and strength symmetric. PSYCH: Alert. Oriented to person and year. Did not know where she was or what month it was. Objective Data Vital Signs Vital Signs: Vital Signs - 24 hr 03/13/23 12:51 03/13/23 12:56 03/13/23 14:33 Temperature 97.6 F Pulse Rate 92 93 92 Respiratory Rate 14 19 Blood Pressure 118/62 110/86 Pulse Oximetry 94 97 Oxygen Delivery 03/13/23 15:00 03/13/23 18:00 03/13/23 21:00 Temperature Pulse Rate 96 95 96 Respiratory Rate 17 19 20 Blood Pressure 134/72 148/67 H 98/86 L Pulse Oximetry 97 97 98 Oxygen Delivery 03/13/23 22:13 03/13/23 23:13 03/13/23 23:30 Temperature 97.4 F L Pulse Rate 96 93 94 Respiratory Rate 17 18 18 Blood Pressure 131/68 124/65 127/63 Pulse Oximetry 97 97 98 Oxygen Delivery 03/13/23 23:48 03/14/23 00:00 03/13/23 23:45 Temperature Pulse Rate 94 93 94 Respiratory Rate 18 Blood Pressure Pulse Oximetry 98 Oxygen Delivery Room Air 03/14/23 02:00 03/14/23 04:00 03/14/23 04:00 Temperature 97.6 F Pulse Rate 86 87 87 Respiratory Rate 18 Blood Pressure 127/62 Pulse Oximetry 100 Oxygen Delivery 03/14/23 04:00 03/14/23 05:18 03/14/23 08:00 Temperature 97.7 F Pulse Rate 87 85 83 Respiratory Rate 18 18 Blood Pressure 112/59 L Pulse Oximetry 100 98 Oxygen Delivery Room Air Intake/Output Intake/Output: Intake & Output 03/11/23 03/12/23 03/13/23 03/14/23 23:59 23:59 23:59 23:59 Intake Total 2300 50 Output Total 200 Balance 2300 -150 Meds/Results Medications: Active Medications Generic Name Dose Route Start Last Admin Trade Name Freq PRN Reason Stop Dose Admin Acetaminophen 650 mg 03/13/23 18:06 Acetaminophen 325 Mg Tablet PO Q4H PRN Mild Pain (1-3) or Fever Buspirone HCl 10 mg 03/14/23 09:00 Buspirone Hcl 10 Mg Tablet PO TID [id number] Cyclobenzaprine HCl 10 mg 03/14/23 00:55 Cyclobenzaprine Hcl 10 Mg Tablet BY MOUTH TID PRN Muscle Spasm (1st line) Dantrolene Sodium 100 mg 03/14/23 00:55 Dantrolene Sodium 25 Mg Capsule PO TID PRN Muscle S
[2023-03-14] MEDS: FAMOTIDINE 10 MG TABLET BY MOUTH ×2 (11:18→20:51)
[2023-03-14] MEDS: OPTI-GEN TAB 1 TABLET BY MOUTH (11:18)
[2023-03-14] MEDS: busPIRone HCL 10 MG TABLET PO ×3 (11:18→17:16)
--- NOTE | 2023-03-14 11:27 | PM.IMPN ---
Subjective Date/time seen: 03/14/23 11:27 Review of Systems Review of Systems: All systems reviewed & are unremarkable except as noted in HPI and below Objective Data Vital Signs Vital Signs: Vital Signs - 24 hr 03/13/23 12:51 03/13/23 12:56 03/13/23 14:33 Temperature 97.6 F Pulse Rate 92 93 92 Respiratory Rate 14 19 Blood Pressure 118/62 110/86 Pulse Oximetry 94 97 Oxygen Delivery 03/13/23 15:00 03/13/23 18:00 03/13/23 21:00 Temperature Pulse Rate 96 95 96 Respiratory Rate 17 19 20 Blood Pressure 134/72 148/67 H 98/86 L Pulse Oximetry 97 97 98 Oxygen Delivery 03/13/23 22:13 03/13/23 23:13 03/13/23 23:30 Temperature 97.4 F L Pulse Rate 96 93 94 Respiratory Rate 17 18 18 Blood Pressure 131/68 124/65 127/63 Pulse Oximetry 97 97 98 Oxygen Delivery 03/13/23 23:48 03/14/23 00:00 03/13/23 23:45 Temperature Pulse Rate 94 93 94 Respiratory Rate 18 Blood Pressure Pulse Oximetry 98 Oxygen Delivery Room Air 03/14/23 02:00 03/14/23 04:00 03/14/23 04:00 Temperature 97.6 F Pulse Rate 86 87 87 Respiratory Rate 18 Blood Pressure 127/62 Pulse Oximetry 100 Oxygen Delivery 03/14/23 04:00 03/14/23 05:18 03/14/23 08:00 Temperature 97.7 F Pulse Rate 87 85 83 Respiratory Rate 18 18 Blood Pressure 112/59 L Pulse Oximetry 100 98 Oxygen Delivery Room Air 03/14/23 10:25 Temperature Pulse Rate Respiratory Rate Blood Pressure Pulse Oximetry 94 Oxygen Delivery Room Air Intake/Output Intake/Output: Intake & Output 03/11/23 03/12/23 03/13/23 03/14/23 23:59 23:59 23:59 23:59 Intake Total 2300 1050 Output Total 200 Balance 2300 850 Meds/Results Medications: Active Medications Generic Name Dose Route Start Last Admin Trade Name Freq PRN Reason Stop Dose Admin Acetaminophen 650 mg 03/13/23 18:06 Acetaminophen 325 Mg Tablet PO Q4H PRN Mild Pain (1-3) or Fever Buspirone HCl 10 mg 03/14/23 09:00 03/14/23 11:18 Buspirone Hcl 10 Mg Tablet PO 10 mg TID KRZYSZTOF Administration Dantrolene Sodium 100 mg 03/14/23 00:55 Dantrolene Sodium 25 Mg Capsule PO TID PRN Muscle Spasm (second-line) Docusate Sodium 200 mg 03/14/23 09:00 03/14/23 11:17 Docusate Sodium 100 Mg Capsule BY MOUTH 04/13/23 08:59 Not Given QAM [facility] Docusate Sodium 100 mg 03/14/23 18:00 Docusate Sodium 100 Mg Capsule BY MOUTH 04/13/23 17:59 QPM KRZYSZTOF Famotidine 10 mg 03/14/23 09:00 03/14/23 11:18 Famotidine 10 Mg Tablet BY MOUTH 10 mg Q12HR KRZYSZTOF Administration Gabapentin 400 mg 03/14/23 13:00 Gabapentin 400 Mg Capsule PO QID KRZYSZTOF Piperacillin/Tazobactam/Dextrose 3.375 gm in 50 mls @ 100 mls/hr 03/14/23 03:00 03/14/23 11:22 Zosyn 3.375 Gm/Ns 50 Ml IVPB 100 mls/hr Q6H KRZYSZTOF Administration Sodium Chloride 1,000 mls @ 125 mls/hr 03/13/23 18:10 03/14/23 11:19 Normal Saline Iv IV CONT 125 mls/hr .Q8H KRZYSZTOF Administration Vancomycin HCl 1,000 mg in 250 mls @ 250 mls/hr 03/14/23 20:00 Vancomycin 1,000 Mg/Ns 250 Ml IVPB Q24H KRZYSZTOF Levothyroxine Sodium 150 mcg 03/14/23 06:30 03/14/23 06:49 Levothyroxine Sodium 150 Mcg Tablet PO 150 mcg DAILY@0630 KRZYSZTOF Administration Magnesium Hydroxide 30 ml 03/14/23 01:16 Magnesium Hydroxide Susp 30 Ml Udc BY MOUTH DAILY PRN Constipation Multivitamins/Minerals 1 tablet 03/14/23 09:00 03/14/23 11:18 Opti-Gen Tab BY MOUTH 04/13/23 08:59 1 tablet DAILY KRZYSZTOF Administration Ondansetron HCl 4 mg 03/13/23 18:06 Ondansetron Inj 4 Mg/2 Ml Vial IV PUSH Q4H PRN Nausea Oxycodone/Acetaminophen 1 tablet 03/14/23 00:55 Oxycodone/Acetaminophen (*Crx) 5-325 Mg Tablet PO BID PRN pain 7-10 Radiology Results: ITS Impressions Abdomen/Pelvis CT 03/13/23 17:41 IMPRESSION: 1. Large heterogeneous mass, predominantly of the right hepatic lobe, probable hepatic abscess. M
[2023-03-14] MEDS: oxyCODONE/ACETAMINOPHEN (*CRX) 5-325 MG TABLET 1 TABLET PO (11:31)
[2023-03-14 12:59] LABS: IFOB Positive Control Positive; Immunochemical Fecal Occult Bl Negative (N)
[2023-03-14] MEDS: GABAPENTIN 400 MG CAPSULE PO ×3 (13:00→20:53)
[2023-03-14 13:38] LABS: Toxigenic C. Diff POSITIVE (NEGATIVE)
--- NOTE | 2023-03-14 15:20 | PC.NURSE ---
Called [facility] to check on Bed. They stated IR is only availble for emergencies. I notified them of patient current status, Vital signs and labs. They said they would represent the case to see if it qualifies for emergency service. Dr. Dickerson notified.
[2023-03-14 19:45] LABS: Lactic Acid Reflex 2.6 mmol/L (0.7-2.0)
[2023-03-14] MEDS: FIDAXOMICIN 200 MG TABLET PO (20:51)
[2023-03-14] MEDS: VANCOMYCIN 1,000 MG/NS 250 ML 1,000 MG/250 ML BAG 250 MG IVPB (20:51)
[2023-03-14 22:33] LABS: Reflex Lactic Acid Yes or No Add Lactic
[2023-03-14 23:39] LABS: Lactic Acid 1.7 mmol/L (0.7-2.0)
[2023-03-15] VITALS (22 sets, daily range): BP systolic 116–138; BP diastolic 56–72; PULSE 79–93; RESP 12–20; TEMP 35.9–36.8; O2SAT 97–100
--- NOTE | 2023-03-15 02:43 | PC.NURSE ---
Spoke to Rogelio at [facility], updated him on lactic acid values.
[2023-03-15 04:07] LABS: Hematocrit 21.4 % (37.0-47.0); Mean Corpuscular HGB Conc 30.4 g/dl (32-36); Mean Corpuscular Hemoglobin 28.1 pg (26-34); Mean Corpuscular Volume 92.6 fl (80-100); Mean Platelet Volume 9.4 fl (7.4-10.4); Platelet Count Result 273 k/mm3 (150-375); Red Blood Count 2.31 M/mm3 (4.2-5.4); White Blood Count 26.2 K/mm3 (4.5-10.0)
[2023-03-15] MEDS: PIPERACILLN/TAZ 3.375GM/NS50ML 3.375 GM/50 ML BAG IVPB ×4 (04:07→20:11)
[2023-03-15 04:19] LABS: Alanine Aminotransferase 25 U/L (6-35); Albumin Level 2.4 g/dL (3.5-5.1); Alkaline Phosphatase 371 U/L (38-126); Anion Gap 6 mmol/L (8-16); Aspartate Amino Transferase 70 U/L (14-36); Bilirubin,Total 0.5 mg/dL (0.2-1.3); Blood Urea Nitrogen 12 mg/dL (7-17); Calcium 7.3 mg/dL (8.4-10.2); Carbon Dioxide 19 mmol/L (22-30); Chloride 111 mmol/L (98-107); Estimated CRCL calculation 45 ml/min; Estimated Glomerular Filt Rate > 60; Glucose 93 mg/dL (65-110); Potassium 2.9 mmol/L (3.4-5.0); Sodium 136 mmol/L (137-145)
[2023-03-15 04:30] LABS: Hemoglobin 6.5 g/dL (12.0-15.0)
[2023-03-15] MEDS: oxyCODONE/ACETAMINOPHEN (*CRX) 5-325 MG TABLET 1 TABLET PO ×2 (04:33→12:53)
[2023-03-15] MEDS: LEVOTHYROXINE SODIUM 150 MCG TABLET PO (04:33)
--- NOTE | 2023-03-15 08:44 | PM.IMPN ---
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 and he feels that she should be transferred to a tertiary care facility IR not available 03/14-03/15, however they typically do not address large, multiloculated abscesses [facility] re: possible transfer (2) Sepsis: Qualifiers: Sepsis type: sepsis due to unspecified organism Sepsis acute organ dysfunction status: with acute organ dysfunction Severe sepsis acute organ dysfunction type: encephalopathy Severe sepsis shock status: with septic shock Qualified Code(s): A41.9 - Sepsis, unspecified organism; R65.21 - Severe sepsis with septic shock; G93.40 - Encephalopathy, unspecified Code(s): A41.9 - Sepsis, unspecified organism Status: Acute Assessment and Plan: Liver abscess, c diff colitis, urine c/s negative, blood c/s pending (no growth as of 03/15 on 1 of 2) 03/15 BP improved with IVF and transfusion (3) C. difficile diarrhea: Code(s): A04.72 - Enterocolitis due to Clostridium difficile, not specified as recurrent Status: Acute Assessment and Plan: Dificid begun 03/14/2023 (4) Acute on chronic anemia: Code(s): D64.9 - Anemia, unspecified Status: Acute Assessment and Plan: Iron panel consistent with anemia of chronic disease Ferritin is elevated likely due to be in acute phase reactant No sign of bleeding 03/15 Hgb 6.5, receiving 1 U PRBC this AM (5) Toxic metabolic encephalopathy: Code(s): G92.8 - Other toxic encephalopathy Status: Acute Assessment and Plan: Psychoactive drugs held and tapering down gabapentin 03/15 mental status stable Monitor with treatment of underlying infection Subjective Date/time seen: 03/15/23 08:44 Interval history: Follow-up for possible right lobe liver abscess seen on CT of the abdomen pelvis. Complains of generalized aching and pain unable to characterize further. Tolerating diet. Complains of diarrhea.? No abdominal cramps. Denied focal pain otherwise. Denied shortness of breath. Denied dysuria. Denied bleeding. Generalized but no focal weakness. Review of Systems Review of Systems: All systems reviewed & are unremarkable except as noted in HPI and below Exam Narrative: HEENT: PERRL, sclerae nonicteric, pharyngeal mucosa pink and intact NECK: No JVD CHEST: Clear to auscultation. Normal effort. HEART: NL S1/S2, regular, no murmur ABDOMEN: BS+, soft, generalized abdominal tenderness without palpable mass.? Some guarding.? No rebound. EXTREMITIES: No cyanosis, edema, or clubbing NEUROLOGIC: CN intact and symmetric to inspection. MUSCULOSKELETAL: Tone and strength symmetric. PSYCH: Alert. Oriented to person and year.? Did not know where she was or what month it was. ? Objective Data Vital Signs Vital Signs: Vital Signs - 24 hr 03/14/23 10:25 03/14/23 12:00 03/14/23 12:00 Temperature 98 F Pulse Rate 81 Respiratory Rate 22 H Blood Pressure 90/45 L Pulse Oximetry 94 100 100 Oxygen Delivery Room Air Room Air 03/14/23 10:00 03/14/23 12:00 03/14/23 14:00 Temperature Pulse Rate 84 84 81 Respiratory Rate Blood Pressure Pulse Oximetry Oxygen Delivery 03/14/23 16:00 03/14/23 16:00 03/14/23 16:00 Temperature 97.5 F L Pulse Rate 84 83 Respiratory Rate 16 Blood Pressure 109/57 L Pulse Oximetry 100 100 Oxygen Delivery Room Air 03/14/23 18:00 03/14/23 20:51 03/14/23 20:00 Temperature 97.6 F Pulse Rate 87 88 Respiratory Rate 20 Blood Pressure 98/75 L Pulse Oximetry 97 Oxygen Delivery Room Air 03/14/23 23:39 03/14/23 20:00 03/14/23 22:00 Temperature 97.6 F Pulse Rate 94 85 88 Respiratory Rate 20 Blood Pressure 143/74 H Pulse Oxim
[2023-03-15] MEDS: TUBING, BLOOD PLUM PUMP TUBING 1 EACH XX (11:16)
[2023-03-15] MEDS: POTASSIUM CHLORIDE 20 MEQ ER TABLET 40 MEQ PO ×2 (11:56→17:24)
[2023-03-15] MEDS: FAMOTIDINE 10 MG TABLET BY MOUTH ×2 (11:57→20:12)
[2023-03-15] MEDS: FIDAXOMICIN 200 MG TABLET PO ×2 (11:57→20:12)
[2023-03-15] MEDS: busPIRone HCL 10 MG TABLET PO ×3 (11:57→17:24)
[2023-03-15] MEDS: GABAPENTIN 300 MG CAPSULE PO ×3 (11:58→17:24)
[2023-03-15] MEDS: SODIUM CHLORIDE 0.9% IV 1,000 ML 125 ML IV CONT (11:58)
[2023-03-15] MEDS: OPTI-GEN TAB 1 TABLET BY MOUTH (11:58)
[2023-03-15 15:43] LABS: Hematocrit 33.2 % (37.0-47.0); Hemoglobin 10.5 g/dL (12.0-15.0)
[2023-03-15 15:59] LABS: Potassium 3.2 mmol/L (3.4-5.0)
[2023-03-15 16:00] LABS: Magnesium 1.5 mg/dL (1.6-2.3)
[2023-03-15 16:14] LABS: Anion Gap 6 mmol/L (8-16); Blood Urea Nitrogen 12 mg/dL (7-17); Calcium 7.4 mg/dL (8.4-10.2); Carbon Dioxide 19 mmol/L (22-30); Chloride 112 mmol/L (98-107); Estimated CRCL calculation 45 ml/min; Estimated Glomerular Filt Rate > 60; Glucose 110 mg/dL (65-110); Sodium 137 mmol/L (137-145)
[2023-03-15] MEDS: CENTRAL LINE FLUSH 10 ML IV PUSH ×2 (17:21→20:13)
[2023-03-15] MEDS: MAGNESIUM SULF 1 GM/D5W 100 ML 1 GM/100 ML BAG IVPB (18:12)
--- NOTE | 2023-03-15 19:47 | PC.NURSE ---
Transfering patient to [facility] room [id number]. [phone] report given to Christina WOOD. Receiving DR. Obrien.
[2023-03-15] MEDS: ACETAMINOPHEN 325 MG TABLET 650 MG PO (20:12)
[2023-03-15 20:51] LABS: Vancomycin Trough 13.7 ug/mL (10.0-20.0)
[2023-03-15] MEDS: VANCOMYCIN 1,000 MG/NS 250 ML 1,000 MG/250 ML BAG 250 MG IVPB (22:15)
[2023-03-16] VITALS: BP 135/77; PULSE 82; PULSE 83; RESP 12; TEMP 36.1; O2SAT 100
[2023-03-16] MEDS: SODIUM CHLORIDE 0.9% IV 1,000 ML 50 ML IV CONT (01:39)
[2023-03-16 02:00] VITALS: PULSE 81
--- NOTE | 2023-03-16 02:37 | PC.NURSE ---
EMS on the way to [facility] with the pt. All belongings sent with pt and report given to EMS. Called NINA Vasquez at [facility] and told that pt was on the way as well as relevant medication admin information.
--- NOTE | 2023-03-16 12:04 | PM.TDS ---
Transfer Discharge Sum: Prov Provider Date of admission: 03/15/23 11:21 Primary care physician: Gus Cervantes MD Admitting clinician: David Lin MD Consults: 03/14/23 Wound/ET Consult Routine Reason for Consult:: DTI to coccyx and Rt heel. 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 and he feels that she should be transferred to a tertiary care facility IR not available 03/14-03/15, however they typically do not address large, multiloculated abscesses here 03/14 contacted [facility] re: possible transfer 03/15 contacted [facility], [facility], and [facility], re: possible transfer 03/15 PM [facility] accepted for transfer (2) Sepsis: Qualifiers: Sepsis acute organ dysfunction status: with acute organ dysfunction Sepsis type: sepsis due to unspecified organism Severe sepsis acute organ dysfunction type: encephalopathy Severe sepsis shock status: with septic shock Qualified Code(s): A41.9 - Sepsis, unspecified organism; R65.21 - Severe sepsis with septic shock; G93.40 - Encephalopathy, unspecified Code(s): A41.9 - Sepsis, unspecified organism Status: Acute Assessment and Plan: Liver abscess, c diff colitis, urine c/s negative, blood c/s pending (no growth as of 03/15 on 1 of 2) 03/15 BP improved with IVF and transfusion (3) C. difficile diarrhea: Code(s): A04.72 - Enterocolitis due to Clostridium difficile, not specified as recurrent Status: Acute Assessment and Plan: Dificid begun 03/14/2023 (4) Acute on chronic anemia: Code(s): D64.9 - Anemia, unspecified Status: Acute Assessment and Plan: Iron panel consistent with anemia of chronic disease Ferritin is elevated likely due to be in acute phase reactant No sign of bleeding 03/15 Hgb 6.5, received 1 U PRBC and f/u Hgb 10.5 (5) Toxic metabolic encephalopathy: Code(s): G92.8 - Other toxic encephalopathy Status: Acute Assessment and Plan: Psychoactive drugs held and tapering down gabapentin 03/15 mental status stable Monitor with treatment of underlying infection Transfer Discharge Sum: Med Medications Active and Home Medications: Home Medications etodolac 300 mg capsule 300 mg PO Q8H PRN Pain 12/23/20 [History Confirmed 03/13/23] gabapentin 800 mg tablet 800 mg PO QID 12/23/20 [History Confirmed 03/13/23] levothyroxine 175 mcg tablet 150 mcg PO DAILY 12/23/20 [History Confirmed 03/14/23] mirabegron 25 mg tablet,extended release 24 hr (Myrbetriq) 25 mg PO HS 12/23/20 [History Confirmed 03/13/23] naloxone 4 mg/actuation nasal spray (Narcan) 4 mg intranasal PRN PRN Opiate Reversal 12/23/20 [History Confirmed 03/13/23] Fleet Enema 1 applic RECTAL PRN PRN Constipation 12/24/20 [History Confirmed 03/13/23] I-Nelson 1 tablet BYMOUTH DAILY 12/24/20 [History Confirmed 03/13/23] Milk of Magnesia 30 ml BYMOUTH PRN PRN Constipation 12/24/20 [History Confirmed 03/13/23] buspirone 10 mg tablet 10 mg PO TID 12/24/20 [History Confirmed 03/13/23] cyclobenzaprine 10 mg BYMOUTH TID PRN Muscle Spasm 12/24/20 [History Confirmed 03/13/23] docusate sodium 100 mg BYMOUTH QPM 12/24/20 [History Confirmed 03/13/23] docusate sodium 200 mg BYMOUTH QAM 12/24/20 [History Confirmed 03/13/23] famotidine 10 mg BYMOUTH BID 12/24/20 [History Confirmed 03/13/23] magnesium citrate 1.745 g BYMOUTH PRN PRN Constipation 12/24/20 [History Confirmed 03/13/23] oxycodone-acetaminophen 5 mg-325 mg tablet 1 tablet PO BID PRN pain #60 tabs 11/13/22 [Rx Confirmed 03/13/23] acetaminophen 650 mg tablet,extended release 650 mg PO Q8H PRN Severe Pain (Scale Score 7-10) 03/13/23 [History Confirme
== END 2023-03-16 02:43 | disposition short-term general hospital (02) | DRG 871 ==
LOC: ANHED 18:23 → ANHIMU 23:09
PROVIDERS: Internal Medicine; Admitting Provider Internal Medicine; Emergency Provider Emergency Medicine; PCP Family Medicine; Visit Provider Internal Medicine
DX: A41.9 Sepsis, unspecified organism (principal); G92.8 Other toxic encephalopathy; K75.0 Abscess of liver; A04.72 Enterocolitis due to Clostridium difficile, not specified as recurrent; D63.8 Anemia in other chronic diseases classified elsewhere; F41.9 Anxiety disorder, unspecified; K21.9 Gastro-esophageal reflux disease without esophagitis; R29.810 Facial weakness; E03.9 Hypothyroidism, unspecified; G89.4 Chronic pain syndrome; L89.159 Pressure ulcer of sacral region, unspecified stage; Z87.820 Personal history of traumatic brain injury; Z87.891 Personal history of nicotine dependence
CPT/HCPCS: 36415; 36430; 36569; 70551; 74177; 80048; 80053; 80202; 81001; 82140; 82274; 82607; 82728; 82746; 83540; 83550; 83605; 83735; 84439; 84443; 84466; 84480; 85014; 85018; 85025; 85027; 85046; 85610; 85730; 86850; 86900; 86901; 86923; 87040; 87086; 87088; 87493; 87636; 93005; 96361; 96365; 96367; 99285; A9270; C1751; G0378; J2543; J3370; J3475; J7030; P9016; Q9967